=== PATIENT | male | born 1965 | race Caucasian/White ===

== ENCOUNTER → 2019-06-19 14:00 | Outpatient (BNVA) | payer MEDICAID, SELFPAY | PROVIDERS: Family Provider Family Medicine; PCP Family Medicine; Visit Provider Anesthesiology | DX: G89.29 Other chronic pain (principal); M47.817 Spondylosis without myelopathy or radiculopathy, lumbosacral region; M79.651 Pain in right thigh; M79.652 Pain in left thigh; F17.210 Nicotine dependence, cigarettes, uncomplicated; Z79.891 Long term (current) use of opiate analgesic | CPT/HCPCS: 99214 ==

== ENCOUNTER → 2019-06-26 09:33 | Outpatient (BNVA) | payer MEDICAID, SELFPAY | PROVIDERS: Family Provider Family Medicine; PCP Family Medicine; Visit Provider Nurse Practitioner Family | DX: E11.9 Type 2 diabetes mellitus without complications (principal) | CPT/HCPCS: 36416; 82044; 83036 ==

== ENCOUNTER → 2019-06-30 13:11 | Outpatient (BNVA) | payer MEDICAID, SELFPAY | PROVIDERS: Family Provider Family Medicine; PCP Family Medicine; Visit Provider Urology | DX: N39.0 Urinary tract infection, site not specified (principal); R33.9 Retention of urine, unspecified | CPT/HCPCS: 81001; 87086 ==

== ENCOUNTER 2019-07-14 10:48 | Outpatient (CLI) | payer MEDICAID, SELFPAY ==
--- NOTE | 2019-07-14 11:00 | US_ITS ---
WS: [id number] Bilateral renal ultrasound, 07/14/2019 Clinical Data: Urinary retention Comparison: Renal ultrasound, 09/21/2015. Findings: The right kidney measures 12.2 cm x 5.2 cm x 5.4 cm and the left kidney is 11.1 cm x 4.8 cm x 5.3 cm. There are no cysts, masses or hydronephrosis. The renal cortical margin is normal. No renal calculi are seen. The abdominal aorta and inferior vena cava show no vascular abnormalities. The bladder was scanned and showed a bladder deformity unchanged from before. This is been suggested to be the prostate but it could represent a large bladder polyp. US/US renal BI* [id number] Impression: 1. Negative bilateral renal ultrasound unchanged. 2. Mass in the bladder which has been described as an enlarged prostate but cou ld represent a bladder polyp. 3. The bladder mass is probably not a malignancy because it has not changed in size in almost 4 years.
== END 2019-07-14 10:49 | disposition home or self-care (01) ==
LOC: US 10:49
PROVIDERS: Family Provider Family Medicine; PCP Family Medicine; Visit Provider Urology
DX: R33.9 Retention of urine, unspecified (principal)
CPT/HCPCS: 76770

== ENCOUNTER → 2019-08-04 08:39 | Outpatient (BNVA) | payer MEDICAID, SELFPAY | PROVIDERS: Family Provider Family Medicine; PCP Family Medicine; Visit Provider Nurse Practitioner | DX: F33.1 Major depressive disorder, recurrent, moderate (principal) | CPT/HCPCS: 99213 ==

== ENCOUNTER → 2019-08-13 11:16 | Outpatient (BNVA) | payer MEDICAID, SELFPAY | PROVIDERS: Family Provider Family Medicine; PCP Family Medicine; Visit Provider Nurse Practitioner | DX: G89.29 Other chronic pain (principal); M54.5 Low back pain; M79.651 Pain in right thigh; M79.652 Pain in left thigh; F17.210 Nicotine dependence, cigarettes, uncomplicated; Z79.891 Long term (current) use of opiate analgesic | CPT/HCPCS: 99214 ==

== ENCOUNTER → 2019-10-08 10:29 | Outpatient (BNVA) | payer MEDICAID, SELFPAY | PROVIDERS: Family Provider Family Medicine; PCP Family Medicine; Visit Provider Nurse Practitioner | DX: G89.29 Other chronic pain (principal); M54.5 Low back pain; F17.210 Nicotine dependence, cigarettes, uncomplicated; Z79.891 Long term (current) use of opiate analgesic; Z71.6 Tobacco abuse counseling | CPT/HCPCS: 99214 ==

== ENCOUNTER → 2019-10-15 14:20 | Outpatient (BNVA) | payer MEDICAID, SELFPAY | PROVIDERS: Family Provider Family Medicine; PCP Family Medicine; Visit Provider Nurse Practitioner Family | DX: E11.9 Type 2 diabetes mellitus without complications (principal) | CPT/HCPCS: 83036 ==

== ENCOUNTER → 2019-11-04 07:53 | Outpatient (BNVA) | payer MEDICAID, SELFPAY | PROVIDERS: Family Provider Family Medicine; PCP Family Medicine; Visit Provider Nurse Practitioner | DX: F33.1 Major depressive disorder, recurrent, moderate (principal) | CPT/HCPCS: 99213 ==

== ENCOUNTER → 2019-12-18 10:42 | Outpatient (BNVA) | payer MEDICAID, SELFPAY | PROVIDERS: Family Provider Family Medicine; PCP Family Medicine; Visit Provider Anesthesiology | DX: G89.29 Other chronic pain (principal); M54.41 Lumbago with sciatica, right side; M54.42 Lumbago with sciatica, left side; M47.817 Spondylosis without myelopathy or radiculopathy, lumbosacral region; F17.210 Nicotine dependence, cigarettes, uncomplicated; Z79.891 Long term (current) use of opiate analgesic; Z71.6 Tobacco abuse counseling | CPT/HCPCS: 99214 ==

== ENCOUNTER → 2020-01-15 10:20 | Outpatient (BNVA) | payer MEDICAID, SELFPAY | PROVIDERS: Family Provider Family Medicine; PCP Family Medicine; Visit Provider Nurse Practitioner Family | DX: E11.9 Type 2 diabetes mellitus without complications (principal); I10 Essential (primary) hypertension | CPT/HCPCS: 82043; 83036 ==

== ENCOUNTER → 2020-02-09 11:37 | Outpatient (BNVA) | payer MEDICAID, SELFPAY | PROVIDERS: Family Provider Family Medicine; PCP Family Medicine; Visit Provider Anesthesiology | DX: G89.29 Other chronic pain (principal); M54.42 Lumbago with sciatica, left side; M54.41 Lumbago with sciatica, right side; M47.817 Spondylosis without myelopathy or radiculopathy, lumbosacral region; F17.210 Nicotine dependence, cigarettes, uncomplicated; Z79.891 Long term (current) use of opiate analgesic | CPT/HCPCS: 99213; 99214 ==

== ENCOUNTER → 2020-02-19 08:03 | Outpatient (BNVA) | payer MEDICAID, SELFPAY | PROVIDERS: Family Provider Family Medicine; PCP Family Medicine; Visit Provider Nurse Practitioner | DX: F33.1 Major depressive disorder, recurrent, moderate (principal) | CPT/HCPCS: 99214 ==

== ENCOUNTER 2020-03-03 08:43 | Outpatient (CLI) | payer MEDICAID, SELFPAY ==
--- NOTE | 2020-03-03 08:47 | ECG_ITS ---
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 Interpretive Statements NAME OF STUDY: LEXISCAN SESTAMIBI STRESS TEST INDICATION: Chest Pain, PROCEDURE: At the baseline, the EKG revealed normal sinus rhythm with a poor R wave progression. The baseline blood pressure was 162/102 mm Hg with a heart rate of 83 beats/min. Lexiscan was infused over a period of 20 seconds. A total of 0.4 milligrams of Lexiscan was infused. The stress phase was continued for a total of 5 minutes. Heart rate at the end of the stress phase was 103 with a blood pressure 168/98. The EKG at the peak infusion revealed no significant changes. Sestamibi was injected 20 seconds after the Lexiscan infusion. Blood pressure at the end of the recovery phase was 171/96 with a heart rate of 95 per minute. CONCLUSION: 1. No significant EKG changes with the LexiScan infusion 2. No LexiScan induced chest pain or cardiac arrhythmia 3. Normal blood pressure and heart rate response 4. Sestamibi/sestamibi perfusion scan pending; see separate report. Electronically Signed On 03-04-2020 16:09:15 CDT by Valeria Bray M.D. [id number]
--- NOTE | 2020-03-03 08:47 | NMCV_ITS ---
NM antonio perf SPECT r/s* [id number] Scott New Age: 54 Gender: M : 1965 Exam Date: 03/03/2020 09:42 Ordering Phys: Valeria Bray MD ([email or web address]) Technologist: ADIN Henry Exam Location: [facility] Indications: Chest pain STRESS TEST Please see separate stress test report in [facility] for full findings IMAGE PROTOCOL Rest/Stress 1 Lexiscan Day Radiopharmaceutical Dose (mCi) Administration Site Administered by Rest: Tc-99m 10.6 IV ADIN Reyes Sestamibi Stress:Tc-99m 32.7 IV ADIN Henry Sestamicarmelo Rest: 03-Mar-2020 60 Discovery 630 Stress: 03-Mar-2020 45 Discovery 630 0.4mg Lexiscan. Images obtained in supine and prone position. SPECT RESULTS Technical Quality: Good Raw Data Analysis: Soft tissue attenuation Image Corrections: No attenuation or motion correction applied Summed Stress Score: 0 Summed Rest Score: 0 Summed Difference Score: 0 PERFUSION FINDINGS Patchy areas of decreased tracer uptake in all of the anterior wall and inferior wall regions. No significant reversibility was noted in these regions. FUNCTIONAL RESULTS (calculated via Gated SPECT) Stress Image LV EF (%): 59 Stress EDV (mL):118 TID: 0.86 Stress ESV (mL):48 FUNCTIONAL FINDINGS: Segmental wall motion analysis revealing no gross wall motion abnormalities IMPRESSIONS 1. Unremarkable myocardial perfusion imaging. 2. Normal LV ejection fraction 59%. 3. LV wall motion analysis revealing no gross wall motion abnormalities. 4. Slightly elevated LV cavity, with end-systolic volume of 48 mL No significant coronary ischemia, based on the above finding Dr Valeria Bray MD FACC (Electronically Signed) Final Date: 03 March 2020 14:38 S
[2020-03-03 08:55] VITALS: BMI 41.8
[2020-03-03 11:28] VITALS: BP 171/96; PULSE 93
== END 2020-03-03 08:44 | disposition home or self-care (01) ==
LOC: CDL 08:43
PROVIDERS: PCP Family Medicine; Visit Provider Internal Medicine Cardiovascular Disease
DX: R06.02 Shortness of breath (principal); R07.89 Other chest pain
CPT/HCPCS: 78452; 93017; A9500

== ENCOUNTER → 2020-04-05 15:05 | Outpatient (BNVA) | payer MEDICAID, SELFPAY | PROVIDERS: PCP Family Medicine; Visit Provider Urology | DX: R33.9 Retention of urine, unspecified (principal); N31.9 Neuromuscular dysfunction of bladder, unspecified; N39.0 Urinary tract infection, site not specified | CPT/HCPCS: 81003 ==

== ENCOUNTER → 2020-04-12 10:58 | Outpatient (BNVA) | payer MEDICAID, SELFPAY | PROVIDERS: Family Provider Family Medicine; PCP Nurse Practitioner Family; Visit Provider Anesthesiology | DX: G89.29 Other chronic pain (principal); M54.42 Lumbago with sciatica, left side; M54.41 Lumbago with sciatica, right side; M47.817 Spondylosis without myelopathy or radiculopathy, lumbosacral region; F17.210 Nicotine dependence, cigarettes, uncomplicated; Z79.891 Long term (current) use of opiate analgesic | CPT/HCPCS: 99213; 99214 ==

== ENCOUNTER → 2020-04-19 09:47 | Outpatient (BNVA) | payer MEDICAID, SELFPAY | PROVIDERS: Family Provider Family Medicine; PCP Nurse Practitioner Family; Visit Provider Nurse Practitioner Family | DX: I10 Essential (primary) hypertension (principal); E11.9 Type 2 diabetes mellitus without complications; A63.0 Anogenital (venereal) warts | CPT/HCPCS: 80061; 83036; 84439; 84443 ==

== ENCOUNTER → 2020-06-14 10:00 | Outpatient (BNVA) | payer MEDICAID, SELFPAY | PROVIDERS: Family Provider Family Medicine; PCP Family Medicine; Visit Provider Anesthesiology | DX: G89.29 Other chronic pain (principal); M47.817 Spondylosis without myelopathy or radiculopathy, lumbosacral region; F17.210 Nicotine dependence, cigarettes, uncomplicated; Z79.891 Long term (current) use of opiate analgesic | CPT/HCPCS: 99213 ==

== ENCOUNTER → 2020-07-01 12:13 | Outpatient (BNVA) | payer MEDICAID, SELFPAY | PROVIDERS: Family Provider Family Medicine; PCP Family Medicine; Visit Provider Family Medicine | DX: R04.2 Hemoptysis (principal); F17.200 Nicotine dependence, unspecified, uncomplicated | CPT/HCPCS: 71046 ==

== ENCOUNTER → 2020-07-05 09:43 | Outpatient (BNVA) | payer MEDICAID, SELFPAY | PROVIDERS: Family Provider Family Medicine; PCP Family Medicine; Visit Provider Nurse Practitioner | DX: F33.1 Major depressive disorder, recurrent, moderate (principal); F41.1 Generalized anxiety disorder | CPT/HCPCS: 99214 ==

== ENCOUNTER → 2020-08-10 13:28 | Outpatient (BNVA) | payer MEDICAID, SELFPAY | PROVIDERS: Family Provider Family Medicine; PCP Family Medicine; Visit Provider Anesthesiology | DX: G89.29 Other chronic pain (principal); M54.5 Low back pain; M47.817 Spondylosis without myelopathy or radiculopathy, lumbosacral region; F17.210 Nicotine dependence, cigarettes, uncomplicated; Z79.891 Long term (current) use of opiate analgesic | CPT/HCPCS: 99213 ==

== ENCOUNTER → 2020-08-11 09:52 | Outpatient (BNVA) | payer MEDICAID, SELFPAY | PROVIDERS: Family Provider Family Medicine; PCP Family Medicine; Visit Provider Nurse Practitioner Family | DX: R30.0 Dysuria (principal); E11.65 Type 2 diabetes mellitus with hyperglycemia; R39.9 Unspecified symptoms and signs involving the genitourinary system; H65.91 Unspecified nonsuppurative otitis media, right ear; Z68.41 Body mass index [BMI] 40.0-44.9, adult | CPT/HCPCS: 36416; 81000; 82962 ==

== ENCOUNTER 2020-08-18 02:07 | Emergency (ER) | payer MEDICAID, SELFPAY ==
[2020-08-18 02:15] VITALS: BP 129/88; PULSE 104; RESP 20; TEMP 36.4; O2SAT 95; BMI 43.9
--- NOTE | 2020-08-18 02:18 | CTR_ITS ---
PROCEDURE INFORMATION: Exam: CT Abdomen And Pelvis Without Contrast Exam date and time: 08/18/2020 2:23 AM Age: 55 years old Clinical indication: Abdominal pain; Localized; Patient HX: Left flank/inguinal pain; Additional info: Flank pain TECHNIQUE: Imaging protocol: Computed tomography of the abdomen and pelvis without contrast. Radiation optimization: All CT scans at this facility use at least one of these dose optimization techniques: automated exposure control; mA and/or kV adjustment per patient size (includes targeted exams where dose is matched to clinical indication); or iterative reconstruction. COMPARISON: US renal BI* [id number] 07/14/2019 11:03 AM RADIATION DOSE METRICS: Total DLP (mGy-cm): 2167.42 FINDINGS: Liver: No mass. Gallbladder and bile ducts: No calcified stones. No ductal dilation. Pancreas: No ductal dilation. Spleen: No splenomegaly. Adrenal glands: Normal. No mass. Kidneys and ureters: No hydronephrosis. Stomach and bowel: No obstruction. No mucosal thickening. Appendix: No evidence of appendicitis. Intraperitoneal space: No free air. No significant fluid collection. Vasculature: No abdominal aortic aneurysm. Lymph nodes: No enlarged lymph nodes. Urinary bladder: Mild bladder wall thickening, correlate with urinalysis. Reproductive: Enlarged prostate gland. Bones/joints: Multilevel degenerative changes. Soft tissues: Unremarkable. CT/CT kidney stone [id number] IMPRESSION: Mild bladder wall thickening, correlate with urinalysis. Findings may be due to acute cystitis or chronic outlet obstruction from enlarged prostate gland. Radiation Dose CTDIVOL = (mGy): DLP = 2167.42 (mGy-cm)
--- NOTE | 2020-08-18 02:19 | W.ED.ABDPA2 ---
HPI - Abdominal Pain General: Chief Complaint: Abdominal Pain Stated Complaint: lower ab pain Time Seen by Provider: 08/18/20 02:14 Source: patient, family and RN notes reviewed Limitations: no limitations History of Present Illness: HPI narrative: This patient presents to the emergency department complaining of lower right abdominal pain and right flank pain radiating to the lower abdominal pain. States has been going on for about 5 days. Patient was seen at a local clinic and spoke to urology and they stated that the patient had kidney stone. Patient thought he had passed it but has not improved over the past day. Patient states significant right lower quadrant abdominal pain. Patient states no longer having pain in his back. Patient has a self cath 4 times a day due to chronic urinary retention issues and prostate problems. Patient states really has not had any problem with this for some time. Patient denies fever denies nausea vomiting. MD elicited complaint: abdominal pain and flank pain Pertinent past history: none Onset (ago): day(s) (5) Pain Consistency: intermittent Severity: moderate Associated Symptoms: Denies chills, dysuria, fever(s), nausea and vomiting Review of Systems General: Reports: 10 or more systems reviewed and unremarkable except in HPI and below Const: Denies: fever(s) or chills Eyes: Denies: change in vision or blurry vision ENMT: Denies: throat pain, hoarseness or mouth pain Card: Denies: chest pain, palpitations, irregular heart rhythm, edema, swelling of feet/ankles or lightheadedness Resp: Denies: dyspnea, productive cough, non-productive cough, wheezing or pain on inspiration GI: Denies: nausea or vomiting : Reports: flank pain; Denies: dysuria Musc: Denies: neck pain, back pain, extremity pain, extremity swelling, joint pain, joint swelling, joint redness, joint warmth or limited range of motion Skin/Breast: Denies: rash, pruritus, erythema or skin tenderness Neuro: Denies: headache(s), numbness in extremities or weakness in extremities Psych: Denies: anxiety or depression PFSH ED PFSH: Medical History Atherosclerotic cardiovascular disease Atypical chest pain Chronic low back pain COPD (chronic obstructive pulmonary disease) Depression Encounter for long-term opiate analgesic use Facet arthritis of lumbosacral region Generalized anxiety disorder History of AR (myocardial infarction) Hypertension Major depressive disorder, recurrent, moderate Mixed hyperlipidemia Neurogenic bladder Opioid contract exists Recurrent UTI Smoker Type 2 diabetes mellitus Urinary retention Surgical History H/O angioplasty Family History Father , at age 50, throat cancer Cancer Social History Smoking and tobacco status: current every day smoker cigarettes Packs smoked per day: 1 Alcohol intake: current Alcohol intake frequency: few times a week Alcohol type: hard liquor Adopted: No Caregiver/support person: No Lives independently: No Marital status: Current occupational status: disabled History of recent travel: No Physical Exam Const: COMMON NORMALS: no acute distress, average body habitus, patient oriented x3, no limitations, healthy appearing, alert and well nourished HENMT: COMMON NORMALS: normocephalic, atraumatic, external ears normal, EAC's normal, TM's normal bilaterally, Normal external nose present and Normal nasal mucous membranes and turbinates present HEAD & SCALP: normocephalic and atraumatic NOSE: Normal external nose present and Normal nasal mucous membranes and turbinates present EXTERNAL EAR: Yes external ears normal EXTERNAL AUDITORY CANAL: EAC's normal TYMPANIC MEMBRANE: TM's normal bilaterally Neck/C-Spine: COMMON NORMALS: full ROM, no lymphadenopathy, supple, no meningeal signs, no JVD, Thyroid normal and No carotid bruits THYROID: Thyroid normal Chest: COMMONS NORMALS: normal inspection of the chest, normal palpation of entire chest wall, normal inspection of the breasts and normal palpation of the breasts Breast/axilla inspection: Yes normal inspection of the breasts BREAST/AXILLA PALPATION: Yes normal palpation of the breasts Resp: COMMON NORMALS: normal respiratory effort, No retractions, No use of accessory muscles, clear to auscultation bilaterally and percussion normal AUSCULTATION: clear to auscultation bilaterally PERCUSSION: percussion normal Cardio: COMMON NORMALS: no JVD, regular rate, regular rhythm, S1 normal heart sound present, S2 normal heart sound present, No gallops present (Cardio), No clicks present (Cardio), No murmurs present (Cardio), No rub (Cardio) and Peripheral pulses 2+ throughout RATE: regular rate RHYTHM: regular rhythm HEART SOUNDS: S1 normal heart sound present and S2 normal heart sound present PERIPHERAL PULSES: Peripheral pulses 2+ throughout GI: COMMON NORMALS: Normal to inspection, nondistended, normoactive bowel sounds present, Soft to palpation, non-tender, No hepatosplenomegaly present, no masses and no bruits PALPATION: Yes Soft to palpation, Yes Tenderness to palpation present (GI) Details: RLQ, Yes Guarding due to palpation present (GI) and Yes No hepatosplenomegaly present : COMMON NORMALS: Yes no CVA tenderness BLADDER/KIDNEY EXAM: Yes no CVA tenderness Back/Pelvis: COMMON NORMALS: no CVA tenderness, thoracic and lumbar spine normal to inspection, no thoracic nor lumbar tenderness, thoraco-lumbar ROM normal and straight leg raise negative bilaterally Extremity: COMMON NORMALS: normal to inspection, full ROM, capillary refill normal, no joint enlargement, no clubbing, cyanosis or edema, no calf tenderness and no pedal edema Neuro: COMMON NORMALS: patient oriented x3 SENSORIUM/ORIENTATION: Yes alert MENINGEAL SIGNS: Yes no meningeal signs Course Reevaluation(s): Reevaluation #1: Patient has been pain-free since placing Lee catheter. And receiving Toradol. Negative evaluation thus far other than appears the patient has acute cystitis. On CT scan urine is still pending patient is pain-free at this time and looking good no fever. Patient be given IV Rocephin in the emergency department patient be discharged home on doxycycline I did discuss at length with patient and family about self caths. We will place a Lee catheter with a leg bag and for the next couple of days it can be removed by his PCP or urologist. Due to the patient's infection is probably the best choice instead of constantly in and out cathing every 4-5 hours. Patient states understanding he will be discharged home per the request Time: 03:53 Vital Signs: Vital signs: Vital Signs Temperature 97.6 F 08/18/20 02:15 Pulse Rate 85 08/18/20 03:37 Respiratory Rate 17 08/18/20 03:37 Blood Pressure 148/87 08/18/20 03:37 Pulse Oximetry 94 08/18/20 03:37 MDM - Abdominal Pain Differential Diagnosis: Differential diagnosis abdominal pain: Likely abdominal pain, acute appendicitis and calculus of kidney Medical Records: Attestation: I reviewed the patient's medical records. Lab Data: Attestation: I reviewed the patient's lab results. Labs: Lab Results 08/18/20 08/18/20 Range/Units 02:35 02:35 WBC 13.8 H (4.0-10.0) 10^3/ uL RBC 4.36 (4.1-5.3) 10^6/u L Hgb 14.5 (11.7-16.6) g/dL Hct 43.3 (42.0-52.0) % MCV 99.3 H (80-94) fL MCH 33.3 (28.0-34.0) pg MCHC 33.5 (30.0-36.0) g/dL RDW 12.2 (12.1-15.1) % Plt Count 220 (130-400) 10^3/c mm MPV 9.8 (7.4-10.4) fL Neut % (Auto) 77.4 % Lymph % (Auto) 15.8 % Borden % (Auto) 5.3 % Eos % (Auto) 0.6 % Baso % (Auto) 0.4 % Neut # (Auto) 10.68 H (1.8-7.7) 10^3/u L Lymph # (Auto) 2.2 (0.8-4.8) 10^3/u L Borden # (Auto) 0.7 (0.2-0.9) 10^3/u L Eos # (Auto) 0.1 (0.0-0.8) 10^3/u L Baso # (Auto) 0.1 (0.0-0.1) 10^3/u L Nucleated RBC % (a uto) 0 % Nucleated RBCs # 0.0 /100WBC Sodium 140 (136-145) mmol/L Potassium 3.8 (3.5-5.1) mmol/L Chloride 101 (98-107) mmol/L Carbon Dioxide 31 H (22-29) mmol/L Anion Gap 11.8 (5-19) BUN 12 (6-20) mg/dL Creatinine 0.6 L (0.7-1.2) mg/dL GFR Calculation 139.9 H (90-130) mL/min Glucose 262 H (65-115) mg/dL Calculated Osmolal ity 299 H (285-295) mOsm/k g Calcium 9.1 (8.5-10.5) mg/dL Total Bilirubin 0.2 (0.15-1.2) mg/dL AST 11 (0-40) U/L ALT 22 (0-41) U/L Alkaline Phosphata se 79 (40-130) IU/L Total Protein 6.8 (6.6-8.7) g/dL Albumin 3.9 (3.5-5.2) g/dL Globulin 2.9 (1.3-4.6) g/dL Lipase 23 (13-60) U/L Discharge Plan Discharge Patient Disposition: Home Clinical Impression: Acute cystitis, Chronic low back pain, Urinary retention, Acute pelvic pain Condition: Stable Prescriptions: New doxycycline hyclate 100 mg capsule 100 mg PO BID 7 Days Qty: 14 RF: 0 No Action albuterol sulfate [ProAir HFA] 90 mcg/actuation HFA aerosol inhaler 2 puff INHALATION Q4H PRN (Reason: shortness of breath or wheezing) Qty: 8.5 RF: 6 Stiolto Respimat 2.5-2.5 mcg/actuation mist 2 puff INHALATION Q24H Qty: 4 RF: 5 glipizide 10 mg tablet 10 mg PO QDAY Qty: 30 RF: 5 duloxetine [Cymbalta] 60 mg capsule,delayed release(DR/EC) 60 mg PO BID RF: 0 nitroglycerin 0.4 mg tablet, sublingual 0.4 mg SUBLINGUAL Q5M PRN (Reason: chest pain) 30 Days Qty: 30 RF: 3 nystatin 100,000 unit/gram ointment 1 applic TOPICAL TID RF: 0 ascorbic acid (vitamin C) 1,000 mg tablet 1 gm PO BID RF: 0 hydrocodone-acetaminophen 10-325 mg tablet 1 tab PO .6 times daily PRN (Reason: pain) 30 Days Qty: 180 RF: 0 hydrocodone-acetaminophen 10-325 mg tablet 1 tab PO .6 times a day PRN (Reason: pain) 30 Days Qty: 180 RF: 0 tiagabine [Gabitril] 4 mg tablet 4 mg PO BID Qty: 60 RF: 1 cetirizine [All Day Allergy (cetirizine)] 10 mg tablet 10 mg PO DAILY Qty: 30 RF: 0 fluticasone propionate 50 mcg/actuation spray,suspension 1 spray intranasal DAILY Qty: 16 RF: 11 alfuzosin 10 mg tablet extended release 24 hr 10 mg PO DAILY Qty: 30 RF: 12 potassium chloride 10 mEq tablet extended release 10 meq PO DAILY Qty: 30 RF: 11 alprazolam [Xanax] 1 mg tablet 1 mg PO .at bed Qty: 30 RF: 0 atenolol 50 mg tablet 50 mg PO DAILY Qty: 30 RF: 0 dexlansoprazole [Dexilant] 60 mg capsule,biphase delayed releas See Rx Instructions .ROUTE .COMPLEX Qty: 30 RF: 5 rosuvastatin 10 mg tablet See Rx Instructions .ROUTE .COMPLEX Qty: 30 RF: 3 metformin 1,000 mg tablet See Rx Instructions .ROUTE .COMPLEX Qty: 60 RF: 4 methenamine hippurate 1 gram tablet See Rx Instructions .ROUTE .COMPLEX Qty: 60 RF: 12 finasteride 5 mg tablet See Rx Instructions .ROUTE .COMPLEX Qty: 30 RF: 12 isosorbide mononitrate 60 mg tablet extended release 24 hr See Rx Instructions .ROUTE .COMPLEX Qty: 90 RF: 2 valsartan-hydrochlorothiazide 80-12.5 mg tablet See Rx Instructions .ROUTE .COMPLEX Qty: 30 RF: 5 dicyclomine 10 mg capsule See Rx Instructions .ROUTE .COMPLEX Qty: 60 RF: 5 Discharge Orders: Discharge ED (Routine); Ordered 08/18/20 Ordered By: Tarik Bernal Referrals: Ralf Singh DO [Primary Care Provider] - Discharge Diet: Advance as tolerated Discharge Activity: Resume usual activity Patient Instructions: Opioid Safety Activity Restrictions/Additional Instructions: Encourage p.o. fluids. Take medications as prescribed. Follow-up with your primary care physician or PCP or urologist in 2 to 3 days for further evaluation as needed. Maintain Lee catheter as instructed Coding Level of Care Code ED Human Resources Office Assistant for Jackg Fwd Exam Comprehensive
[2020-08-18] MEDS: ketorolac 30 mg/mL INJ 15 MG IVP (02:29)
[2020-08-18] MEDS: ondansetron 2 mg/ML SDV 2 mL 4 MG IVP (02:29)
[2020-08-18] MEDS: sodium chloride 0.9% 500 ML IV (02:30)
[2020-08-18 02:38] LABS: Basophils # 0.1 10^3/uL (0.0-0.1); Basophils % 0.4 %; Eosinophils # 0.1 10^3/uL (0.0-0.8); Eosinophils % 0.6 %; Hematocrit 43.3 % (42.0-52.0); Hemoglobin 14.5 g/dL (11.7-16.6); Lymphocytes # 2.2 10^3/uL (0.8-4.8); Lymphocytes % 15.8 %; Mean Corpuscular HGB Conc 33.5 g/dL (30.0-36.0); Mean Corpuscular Hemoglobin 33.3 pg (28.0-34.0); Mean Corpuscular Volume 99.3 fL (80-94); Mean Platelet Volume 9.8 fL (7.4-10.4); Monocytes # 0.7 10^3/uL (0.2-0.9); Monocytes % 5.3 %; Neutrophils # 10.68 10^3/uL (1.8-7.7); Neutrophils % 77.4 %; Nucleated Red Blood Cells % 0 %; Platelet Count 220 10^3/cmm (130-400); Red Blood Count 4.36 10^6/uL (4.1-5.3); Red Cell Distribution Width 12.2 % (12.1-15.1); White Blood Count 13.8 10^3/uL (4.0-10.0)
[2020-08-18 02:45] VITALS: BP 129/88; PULSE 98; RESP 18; O2SAT 95
[2020-08-18 03:01] LABS: Alanine Aminotransferase 22 U/L (0-41); Albumin Level 3.9 g/dL (3.5-5.2); Alkaline Phosphatase 79 IU/L (40-130); Anion Gap 11.8 (5-19); Aspartate Amino Transferase 11 U/L (0-40); Blood Urea Nitrogen 12 mg/dL (6-20); Calcium 9.1 mg/dL (8.5-10.5); Carbon Dioxide 31 mmol/L (22-29); Chloride 101 mmol/L (98-107); Globulin 2.9 g/dL (1.3-4.6); Glomerular Filtration Rate 139.9 mL/min (90-130); Glucose 262 mg/dL (65-115); Lipase 23 U/L (13-60); Osmolality Calculated 299 mOsm/kg (285-295); Potassium 3.8 mmol/L (3.5-5.1); Sodium 140 mmol/L (136-145); Total Bilirubin 0.2 mg/dL (0.15-1.2); Total Protein 6.8 g/dL (6.6-8.7)
[2020-08-18 03:06] VITALS: BP 144/86; PULSE 81; RESP 17; O2SAT 94
[2020-08-18 03:37] VITALS: BP 148/87; PULSE 85; RESP 17; O2SAT 94
[2020-08-18] MEDS: cefTRIAXone 1,000 MG in sodium chloride 0.9% (plus) 50 ML 100 MG IV (03:54)
[2020-08-18 04:07] LABS: Urine Appearance Cloudy (CLEAR); Urine Color Yellow (Yellow)
[2020-08-18 04:09] LABS: Bilirubin Urine Neg (Negative); Blood Urine 3+ (Negative); Glucose Urine UA 4+ (Normal); Ketones Urine 1+ (Negative); Nitrate Urine Positive (Negative); Protein Urine Trace (Negative); Urobilinogen Urine 1 mg/dL (Negative); pH Urine 5 (5-7)
[2020-08-18 04:10] LABS: Add Urine Microscopic? YES; Bacteria Urine 3+ /hpf; Leukocyte Esterase Urine 2+ (Negative); RBC Urine 15-25 /hpf (0-2); Squamous Epithelial Cell Urine RARE /hpf (0-5); WBC Urine 25-40 /hpf (0-5)
[2020-08-18 04:11] LABS: Add Urine Culture? Yes
== END 2020-08-18 04:21 | disposition home or self-care (01) ==
PROVIDERS: Emergency Provider Emergency Medicine; PCP Family Medicine
DX: N30.00 Acute cystitis without hematuria (principal); R10.2 Pelvic and perineal pain; R33.9 Retention of urine, unspecified; G89.29 Other chronic pain; M54.5 Low back pain; Z79.84 Long term (current) use of oral hypoglycemic drugs; J44.9 Chronic obstructive pulmonary disease, unspecified; I25.2 Old myocardial infarction; I10 Essential (primary) hypertension; E78.2 Mixed hyperlipidemia; E11.9 Type 2 diabetes mellitus without complications; F17.210 Nicotine dependence, cigarettes, uncomplicated; Z87.440 Personal history of urinary (tract) infections
CPT/HCPCS: 51702; 74176; 80053; 81001; 83690; 85025; 87077; 87086; 87186; 96365; 96375; 99283; J0696; J1885; J2405; J7040

== ENCOUNTER 2020-08-19 00:51 | Emergency (ER) | payer MEDICAID, SELFPAY ==
[2020-08-19 00:53] VITALS: BP 149/90; PULSE 109; RESP 24; TEMP 36.7; O2SAT 90; BMI 43.9
--- NOTE | 2020-08-19 01:06 | US_ITS ---
WS: [id number] SCROTAL ULTRASOUND REASON FOR EXAM: right testicle pain COMPARISON: None available. TECHNIQUE: Grayscale and duplex color Doppler ultrasound examination of the scrotum. FINDINGS: RIGHT: Right testes measures 4.0 cm x 3.2 cm x 3.0 cm. Moderate hydrocele. Enlargement of the epididymis. In creased color Doppler flow in the epididymis and right testicle. Normal echogenicity of the right sloane ticle with no focal lesion. LEFT: Left testes measures 4.3 cm x 3.5 cm x 2.8 cm. No hydrocele. Normal echotexture without focal lesion. Normal epididymis. Normal blood flow. US/US scrotum [id number] IMPRESSION: Findings in the right hemiscrotum compatible with epididymoorchitis.
--- NOTE | 2020-08-19 01:06 | W.ED.MALEGU ---
HPI - Male Genitourinary General: Chief complaint: Urogenital-Male Stated complaint: swollen testes Time Seen by Provider: 08/19/20 00:58 Source: patient Mode of arrival: ambulatory Limitations: no limitations History of Present Illness: HPI Narrative: 55-year-old male states that testicle pain over the last day. States he was seen yesterday and diagnosed with a urinary tract infection and had a Lee in place. He states that his testicles got much more swollen and painful. He states pain is currently 9 out of 10 is much worse with any palpation. Complaint: testicle pain Onset (ago): day(s) Duration: constant Location: right testicle Associated symptoms: Deny nausea or vomiting Review of Systems Const: Denies: fever(s), chills, body aches or change in appetite Eyes: Denies: blurry vision or eye discomfort ENMT: Denies: throat pain or dental pain Card: Denies: chest pain Resp: Denies: dyspnea GI: Denies: abdominal pain, nausea, vomiting or diarrhea : Reports: testicular pain Musc: Denies: neck pain or back pain Skin/Breast: Denies: rash Neuro: Denies: headache(s) Psych: Denies: depression Mitul/Lymph: Denies: easy bruising All/Imm: Denies: urticaria PFSH ED PFSH: Medical History Atherosclerotic cardiovascular disease Atypical chest pain Chronic low back pain COPD (chronic obstructive pulmonary disease) Depression Encounter for long-term opiate analgesic use Facet arthritis of lumbosacral region Generalized anxiety disorder History of [place] (myocardial infarction) Hypertension Major depressive disorder, recurrent, moderate Mixed hyperlipidemia Neurogenic bladder Opioid contract exists Recurrent UTI Smoker Type 2 diabetes mellitus Urinary retention Surgical History H/O angioplasty Family History Father , at age 50, throat cancer Cancer Social History Smoking and tobacco status: current every day smoker cigarettes Packs smoked per day: 1 Alcohol intake: current Alcohol intake frequency: few times a week Alcohol type: hard liquor Adopted: No Caregiver/support person: No Lives independently: No Marital status: Current occupational status: disabled History of recent travel: No Physical Exam Const: COMMON NORMALS: no acute distress, patient oriented x3 and healthy appearing HENMT: COMMON NORMALS: normocephalic and atraumatic HEAD & SCALP: normocephalic and atraumatic Eye: COMMON NORMALS: Equal, round and reactive pupils present and EOMs intact bilaterally PUPIL: Yes Equal, round and reactive pupils present Neck/C-Spine: COMMON NORMALS: full ROM and supple Chest: COMMONS NORMALS: normal inspection of the chest and normal palpation of entire chest wall Resp: COMMON NORMALS: normal respiratory effort, No retractions, No use of accessory muscles and clear to auscultation bilaterally AUSCULTATION: clear to auscultation bilaterally Cardio: COMMON NORMALS: regular rate, regular rhythm and No murmurs present (Cardio) RATE: regular rate RHYTHM: regular rhythm GI: COMMON NORMALS: Normal to inspection, nondistended, normoactive bowel sounds present, Soft to palpation, non-tender and no masses PALPATION: Yes Soft to palpation : OTHER: Tenderness and swelling to right testicle. Lee in place Extremity: COMMON NORMALS: normal to inspection and full ROM Neuro: COMMON NORMALS: patient oriented x3, moves all extremities and no focal motor deficits Psych: COMMON NORMALS: mental status grossly normal, Normal thought process present and cooperative THOUGHT PROCESS: Normal thought process present Skin: COMMON NORMALS: no rashes or lesions noted and no wounds GENERAL SKIN EXAM: no rashes or lesions noted Course Vital Signs: Vital signs: Vital Signs Temperature 98.0 F 08/19/20 00:53 Pulse Rate 109 H 08/19/20 00:53 Respiratory Rate 24 H 08/19/20 00:53 Blood Pressure 149/90 08/19/20 00:53 Pulse Oximetry 90 08/19/20 00:53 MDM - Male MDM Narrative: Medical decision making narrative: Patient presents with epididymitis of his right testicle. He is to continue his antibiotics and pain meds. He has no signs of torsion. Patient is stable for discharge and is to follow-up his PCP. Discharge Plan Discharge Patient Disposition: Home Clinical Impression: Epididymitis Condition: Stable Prescriptions: No Action albuterol sulfate [ProAir HFA] 90 mcg/actuation HFA aerosol inhaler 2 puff INHALATION Q4H PRN (Reason: shortness of breath or wheezing) Qty: 8.5 RF: 6 Stiolto Respimat 2.5-2.5 mcg/actuation mist 2 puff INHALATION Q24H Qty: 4 RF: 5 glipizide 10 mg tablet 10 mg PO QDAY Qty: 30 RF: 5 duloxetine [Cymbalta] 60 mg capsule,delayed release(DR/EC) 60 mg PO BID RF: 0 nitroglycerin 0.4 mg tablet, sublingual 0.4 mg SUBLINGUAL Q5M PRN (Reason: chest pain) 30 Days Qty: 30 RF: 3 nystatin 100,000 unit/gram ointment 1 applic TOPICAL TID RF: 0 ascorbic acid (vitamin C) 1,000 mg tablet 1 gm PO BID RF: 0 hydrocodone-acetaminophen 10-325 mg tablet 1 tab PO .6 times daily PRN (Reason: pain) 30 Days Qty: 180 RF: 0 hydrocodone-acetaminophen 10-325 mg tablet 1 tab PO .6 times a day PRN (Reason: pain) 30 Days Qty: 180 RF: 0 tiagabine [Gabitril] 4 mg tablet 4 mg PO BID Qty: 60 RF: 1 cetirizine [All Day Allergy (cetirizine)] 10 mg tablet 10 mg PO DAILY Qty: 30 RF: 0 fluticasone propionate 50 mcg/actuation spray,suspension 1 spray intranasal DAILY Qty: 16 RF: 11 alfuzosin 10 mg tablet extended release 24 hr 10 mg PO DAILY Qty: 30 RF: 12 potassium chloride 10 mEq tablet extended release 10 meq PO DAILY Qty: 30 RF: 11 alprazolam [Xanax] 1 mg tablet 1 mg PO .at bed Qty: 30 RF: 0 atenolol 50 mg tablet 50 mg PO DAILY Qty: 30 RF: 0 dexlansoprazole [Dexilant] 60 mg capsule,biphase delayed releas See Rx Instructions .ROUTE .COMPLEX Qty: 30 RF: 5 rosuvastatin 10 mg tablet See Rx Instructions .ROUTE .COMPLEX Qty: 30 RF: 3 metformin 1,000 mg tablet See Rx Instructions .ROUTE .COMPLEX Qty: 60 RF: 4 methenamine hippurate 1 gram tablet See Rx Instructions .ROUTE .COMPLEX Qty: 60 RF: 12 finasteride 5 mg tablet See Rx Instructions .ROUTE .COMPLEX Qty: 30 RF: 12 isosorbide mononitrate 60 mg tablet extended release 24 hr See Rx Instructions .ROUTE .COMPLEX Qty: 90 RF: 2 valsartan-hydrochlorothiazide 80-12.5 mg tablet See Rx Instructions .ROUTE .COMPLEX Qty: 30 RF: 5 dicyclomine 10 mg capsule See Rx Instructions .ROUTE .COMPLEX Qty: 60 RF: 5 doxycycline hyclate 100 mg capsule 100 mg PO BID 7 Days Qty: 14 RF: 0 Discharge Orders: Discharge ED (Routine); Ordered 08/19/20 Ordered By: Josette Daniels Referrals: Ralf Singh DO [Primary Care Provider] - 1-3 days Discharge Diet: Advance as tolerated Discharge Activity: Resume usual activity Patient Instructions: Epididymitis (ED) Coding Level of Care Code 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
[2020-08-19] MEDS: HYDROcodone-acetaminophen 7.5-325 mg Tablet 1 TAB PO (01:13)
--- NOTE | 2020-08-19 02:35 | PC.NURSE ---
Lee catheter removed at this time per pt request after approved by Dr. Daniels. 10ml sterile water removed from bulb and catheter intact. Pt tolerated well.
[2020-08-19 02:41] VITALS: BP 162/96; PULSE 104; RESP 18; O2SAT 90
== END 2020-08-19 02:42 | disposition home or self-care (01) ==
PROVIDERS: Emergency Provider Emergency Medicine; PCP Family Medicine
DX: N45.1 Epididymitis (principal); J44.9 Chronic obstructive pulmonary disease, unspecified; I25.2 Old myocardial infarction; I10 Essential (primary) hypertension; E78.2 Mixed hyperlipidemia; E11.9 Type 2 diabetes mellitus without complications; F17.210 Nicotine dependence, cigarettes, uncomplicated
CPT/HCPCS: 76870; 99283

== ENCOUNTER → 2020-08-30 13:07 | Outpatient (BNVA) | payer MEDICAID, SELFPAY | PROVIDERS: PCP Family Medicine; Visit Provider Podiatrist Foot & Ankle Surgery | DX: M79.671 Pain in right foot (principal); M79.672 Pain in left foot | CPT/HCPCS: 77077 ==

== ENCOUNTER → 2020-09-23 13:35 | Outpatient (BNVA) | payer MEDICAID, SELFPAY | PROVIDERS: PCP Family Medicine; Visit Provider Nurse Practitioner | DX: F41.1 Generalized anxiety disorder (principal); F33.1 Major depressive disorder, recurrent, moderate | CPT/HCPCS: 99214 ==

== ENCOUNTER → 2020-10-12 11:20 | Outpatient (BNVA) | payer MEDICAID, SELFPAY | PROVIDERS: PCP Family Medicine; Visit Provider Nurse Practitioner | DX: G89.29 Other chronic pain (principal); M47.817 Spondylosis without myelopathy or radiculopathy, lumbosacral region; F17.210 Nicotine dependence, cigarettes, uncomplicated; Z79.891 Long term (current) use of opiate analgesic; Z71.6 Tobacco abuse counseling | CPT/HCPCS: 99213; 99214 ==

== ENCOUNTER 2020-10-26 14:12 | Outpatient (CLI) | payer MEDICAID, SELFPAY ==
--- NOTE | 2020-10-26 14:17 | CT_ITS ---
WS: [id number] LDCT LUNG CANCER SCREENING HISTORY: NICOTINE DEPENDENCE TECHNIQUE: Axial imaging performed from the apices to 1 cm below the costophrenic angles. Coronal and sagittal reformats are submitted with axial MIP series. All CT scans at [facility] use at least one of these dose optimization techniques: automated exposure control; mA and/or kV adjustment per patient size (includes targeted exams where dose is matched to clinical indication); or iterativ e reconstruction. DLP: 52.21 mGy.cm DIvol: 1.58 mGy COMPARISON: None available. Diagnostic quality: Satisfactory Lung Nodules: No pulmonary nodules or endobronchial lesions. Lungs: Mild pulmonary hyperexpansion from emphysema. Heart: Normal size. A few scattered calcifications in the LEFT anterior descending coronary artery. Other findings: Mild anterior wedging of T12. CT/CT lung screening [id number] IMPRESSION: LUNG-RADS: 1-Negative FOLLOW UP: 12 Month: Continue annual screening with LDCT OTHER FINDINGS (S MODIFIER): None.
== END 2020-10-26 14:13 | disposition home or self-care (01) ==
LOC: CT 14:15
PROVIDERS: PCP Nurse Practitioner Family; Visit Provider Internal Medicine Critical Care Medicine
DX: Z12.2 Encounter for screening for malignant neoplasm of respiratory organs (principal); F17.210 Nicotine dependence, cigarettes, uncomplicated
CPT/HCPCS: 71271

== ENCOUNTER → 2020-11-08 11:36 | Outpatient (BNVA) | payer MEDICAID, SELFPAY | PROVIDERS: PCP Nurse Practitioner Family; Visit Provider Nurse Practitioner Family | DX: E11.65 Type 2 diabetes mellitus with hyperglycemia (principal); I10 Essential (primary) hypertension | CPT/HCPCS: 83036 ==

== ENCOUNTER → 2020-12-07 10:06 | Outpatient (BNVA) | payer MEDICAID, SELFPAY | PROVIDERS: PCP Nurse Practitioner Family; Visit Provider Nurse Practitioner | DX: G89.29 Other chronic pain (principal); M47.817 Spondylosis without myelopathy or radiculopathy, lumbosacral region; F17.210 Nicotine dependence, cigarettes, uncomplicated; Z79.891 Long term (current) use of opiate analgesic; Z71.6 Tobacco abuse counseling | CPT/HCPCS: 99213; 99406 ==

== ENCOUNTER → 2020-12-19 10:50 | Outpatient (BNVA) | payer MEDICAID, SELFPAY | PROVIDERS: PCP Nurse Practitioner Family; Visit Provider Nurse Practitioner | DX: F33.1 Major depressive disorder, recurrent, moderate (principal); F41.1 Generalized anxiety disorder | CPT/HCPCS: 99214 ==

== ENCOUNTER → 2021-02-07 10:14 | Outpatient (BNVA) | payer MEDICAID, SELFPAY | PROVIDERS: PCP Nurse Practitioner Family; Visit Provider Nurse Practitioner | DX: G89.29 Other chronic pain (principal); M47.817 Spondylosis without myelopathy or radiculopathy, lumbosacral region; M79.671 Pain in right foot; M79.672 Pain in left foot; F17.210 Nicotine dependence, cigarettes, uncomplicated; Z79.891 Long term (current) use of opiate analgesic | CPT/HCPCS: 99213; 99214 ==

== ENCOUNTER → 2021-02-08 11:40 | Outpatient (BNVA) | payer MEDICAID, SELFPAY | PROVIDERS: PCP Nurse Practitioner Family; Visit Provider Internal Medicine Critical Care Medicine | DX: E11.65 Type 2 diabetes mellitus with hyperglycemia (principal); J42 Unspecified chronic bronchitis; J96.12 Chronic respiratory failure with hypercapnia; G47.33 Obstructive sleep apnea (adult) (pediatric); F17.200 Nicotine dependence, unspecified, uncomplicated | CPT/HCPCS: 83036 ==

== ENCOUNTER → 2021-03-06 11:22 | Outpatient (BNVA) | payer MEDICAID, SELFPAY | PROVIDERS: PCP Nurse Practitioner Family; Visit Provider Nurse Practitioner | DX: F33.1 Major depressive disorder, recurrent, moderate (principal); F41.1 Generalized anxiety disorder | CPT/HCPCS: 99214 ==

== ENCOUNTER 2021-04-04 13:56 | Outpatient (CLI) | payer MEDICAID, SELFPAY ==
--- NOTE | 2021-04-04 14:15 | US_ITS ---
WS: [id number] ULTRASOUND RENAL TECHNIQUE: Ultrasound examination of both kidneys. CLINICAL INFORMATION: URINARY RETENTION COMPARISON: CT August 18, 2020 Ultrasound July 14, 2019 FINDINGS: Technically difficult examination due to body habitus. RIGHT: Right kidney is normal in size and appearance. Echogenicity: Normal. Cortical thickness: 1.3 cm; Normal. Hydronephrosis: None. Perinephric fluid: None. Right kidney measures: 11.5 cm x 5.0 cm x 5.6 cm. LEFT:Tiny cyst mid left kidney measuring 1.2 x 1.0 x 0.7 cm Left kidney is normal in size and appearance. Echogenicity: Normal. Cortical thickness: 1.5 cm; Normal. Hydronephrosis: None. Perinephric fluid: None. Left kidney measures: 12.7 cm x 4.2 cm x 6.0 cm. Normal visualized aorta.Moderate diffuse bladder wall thickening likely due to bladder outlet obstruc tion. Enlarged nodular prostate measuring approximately 4.1 x 4.8 x 3.4 CM. Recommend correlation PSA. US/US renal BI* [id number] IMPRESSION: 1. No hydronephrosis in either kidney. 2. Moderate diffuse bladder wall thickening likely due to bladder outlet obstr uction. 3. Enlarged nodular prostate with indentation on the bladder measuring approxi mately 4.1 x 4.8 x 3.4 CM. Recommend correlation PSA. This is similar to the re cent CT. 4. Tiny cyst mid left kidney measuring 1.2 x 1.0 x 0.7 cm
== END 2021-04-04 13:57 | disposition home or self-care (01) ==
LOC: RAD 13:58
PROVIDERS: PCP Nurse Practitioner Family; Visit Provider Urology
DX: R33.9 Retention of urine, unspecified (principal); N40.2 Nodular prostate without lower urinary tract symptoms; N28.1 Cyst of kidney, acquired
CPT/HCPCS: 76770; 81003

== ENCOUNTER → 2021-04-07 10:17 | Outpatient (BNVA) | payer MEDICAID, SELFPAY | PROVIDERS: PCP Nurse Practitioner Family; Visit Provider Anesthesiology | DX: G89.29 Other chronic pain (principal); M47.817 Spondylosis without myelopathy or radiculopathy, lumbosacral region; F17.200 Nicotine dependence, unspecified, uncomplicated; Z79.891 Long term (current) use of opiate analgesic; Z71.6 Tobacco abuse counseling | CPT/HCPCS: 99214 ==

== ENCOUNTER → 2021-05-08 11:15 | Outpatient (BNVA) | payer MEDICAID, SELFPAY | PROVIDERS: PCP Nurse Practitioner Family; Visit Provider Nurse Practitioner | DX: F33.1 Major depressive disorder, recurrent, moderate (principal); F41.1 Generalized anxiety disorder | CPT/HCPCS: 99214 ==

== ENCOUNTER → 2021-06-09 08:36 | Outpatient (BNVA) | payer MEDICAID, SELFPAY | PROVIDERS: PCP Nurse Practitioner Family; Visit Provider Anesthesiology | DX: G89.29 Other chronic pain (principal); M47.817 Spondylosis without myelopathy or radiculopathy, lumbosacral region; G25.81 Restless legs syndrome; F17.200 Nicotine dependence, unspecified, uncomplicated; Z79.891 Long term (current) use of opiate analgesic | CPT/HCPCS: 99213; 99214 ==

== ENCOUNTER → 2021-08-01 11:09 | Outpatient (BNVA) | payer MEDICAID, SELFPAY | PROVIDERS: PCP Nurse Practitioner Family; Visit Provider Nurse Practitioner | DX: F33.1 Major depressive disorder, recurrent, moderate (principal); F41.1 Generalized anxiety disorder | CPT/HCPCS: 99214 ==

== ENCOUNTER → 2021-08-24 09:21 | Outpatient (BNVA) | payer MEDICAID, SELFPAY | PROVIDERS: PCP Nurse Practitioner Family; Visit Provider Family Medicine | DX: E11.9 Type 2 diabetes mellitus without complications (principal); J42 Unspecified chronic bronchitis; Z79.891 Long term (current) use of opiate analgesic; Z68.41 Body mass index [BMI] 40.0-44.9, adult; G89.29 Other chronic pain; M47.817 Spondylosis without myelopathy or radiculopathy, lumbosacral region; F17.200 Nicotine dependence, unspecified, uncomplicated; G25.81 Restless legs syndrome | CPT/HCPCS: 80053; 80061; 83036; 84439; 84443; 85025 ==

== ENCOUNTER → 2021-09-01 14:33 | Outpatient (BNVA) | payer MEDICAID, SELFPAY | PROVIDERS: PCP Nurse Practitioner Family; Visit Provider Nurse Practitioner Family | DX: R79.89 Other specified abnormal findings of blood chemistry (principal) | CPT/HCPCS: 86376 ==

== ENCOUNTER → 2021-10-03 13:10 | Outpatient (BNVA) | payer MEDICAID, SELFPAY | PROVIDERS: PCP Nurse Practitioner Family; Visit Provider Nurse Practitioner | DX: F33.1 Major depressive disorder, recurrent, moderate (principal); F41.1 Generalized anxiety disorder | CPT/HCPCS: 99214 ==

== ENCOUNTER 2021-11-06 16:23 | Outpatient (CLI) | payer MEDICAID, SELFPAY ==
--- NOTE | 2021-11-06 16:37 | XR_ITS ---
WS: [id number] Exam: XR lumbar spine f/e only [id number] Date/Time of Exam: 11/06/2021 4:50 PM Reason For Exam: LOW BACK PAIN No acute fracture or dislocation. There is spondylosis. Facet arthropathy at all levels. There is str aightening. No significant flexion or extension instability. XR/XR lumbar spine f/e only [id number] IMPRESSION: 1. No fracture or malalignment. No instability noted. 2. Moderate degenerative changes as detailed above.
== END 2021-11-06 16:24 | disposition home or self-care (01) ==
PROVIDERS: PCP Family Medicine; Visit Provider Nurse Practitioner
DX: M54.51 Vertebrogenic low back pain (principal)
CPT/HCPCS: 72120

== ENCOUNTER → 2021-11-20 11:29 | Outpatient (BNVA) | payer MEDICAID, SELFPAY | PROVIDERS: PCP Family Medicine; Visit Provider Nurse Practitioner Family | DX: E11.9 Type 2 diabetes mellitus without complications (principal); Z87.898 Personal history of other specified conditions; Z68.41 Body mass index [BMI] 40.0-44.9, adult | CPT/HCPCS: 83036 ==

== ENCOUNTER → 2021-12-19 08:19 | Outpatient (BNVA) | payer MEDICAID, SELFPAY | PROVIDERS: PCP Family Medicine; Visit Provider Podiatrist Foot & Ankle Surgery | DX: M21.621 Bunionette of right foot (principal); M21.622 Bunionette of left foot; E11.8 Type 2 diabetes mellitus with unspecified complications; E11.42 Type 2 diabetes mellitus with diabetic polyneuropathy; I73.9 Peripheral vascular disease, unspecified; L60.3 Nail dystrophy; M20.41 Other hammer toe(s) (acquired), right foot; M20.42 Other hammer toe(s) (acquired), left foot | CPT/HCPCS: 11056; 11721 ==

== ENCOUNTER → 2021-12-26 10:22 | Outpatient (BNVA) | payer MEDICAID, SELFPAY | PROVIDERS: PCP Family Medicine; Visit Provider Nurse Practitioner Family | DX: R31.9 Hematuria, unspecified (principal); R33.9 Retention of urine, unspecified | CPT/HCPCS: 81000; 81003; 87077; 87086; 87184 ==

== ENCOUNTER 2022-04-04 11:16 | Outpatient (CLI) | payer MEDICAID, SELFPAY ==
[2022-04-04 13:12] LABS: Prostate Specific AG Urology 1.17 ng/mL (0-4)
== END 2022-04-04 11:17 | disposition home or self-care (01) ==
PROVIDERS: PCP Nurse Practitioner Family; Visit Provider Urology
DX: Z12.5 Encounter for screening for malignant neoplasm of prostate (principal); N39.0 Urinary tract infection, site not specified; R33.9 Retention of urine, unspecified
CPT/HCPCS: 36415; 51798; 81003; 84153; 99213

== ENCOUNTER → 2022-07-02 11:36 | Outpatient (BNVA) | payer MEDICAID, SELFPAY | PROVIDERS: PCP Nurse Practitioner Family; Visit Provider Nurse Practitioner Family | DX: K21.9 Gastro-esophageal reflux disease without esophagitis (principal); I10 Essential (primary) hypertension; E11.65 Type 2 diabetes mellitus with hyperglycemia; L84 Corns and callosities; Z68.41 Body mass index [BMI] 40.0-44.9, adult | CPT/HCPCS: 80053; 80061; 83036; 83721; 84443 ==

== ENCOUNTER → 2022-07-16 12:10 | Outpatient (BNVA) | payer MEDICAID, SELFPAY | PROVIDERS: PCP Nurse Practitioner Family; Visit Provider Internal Medicine Cardiovascular Disease | DX: I10 Essential (primary) hypertension (principal); E78.2 Mixed hyperlipidemia; J42 Unspecified chronic bronchitis; E11.65 Type 2 diabetes mellitus with hyperglycemia; Z79.84 Long term (current) use of oral hypoglycemic drugs; F17.200 Nicotine dependence, unspecified, uncomplicated; Z79.891 Long term (current) use of opiate analgesic; E66.9 Obesity, unspecified; Z68.41 Body mass index [BMI] 40.0-44.9, adult; F17.210 Nicotine dependence, cigarettes, uncomplicated | CPT/HCPCS: 99213 ==

== ENCOUNTER → 2022-10-03 09:15 | Outpatient (BNVA) | payer MEDICAID, SELFPAY | PROVIDERS: PCP Nurse Practitioner Family; Visit Provider Nurse Practitioner Family | DX: E11.9 Type 2 diabetes mellitus without complications (principal); I10 Essential (primary) hypertension; Z68.41 Body mass index [BMI] 40.0-44.9, adult | CPT/HCPCS: 82043; 83036 ==

== ENCOUNTER → 2022-11-09 10:07 | Outpatient (BNVA) | payer MEDICAID, SELFPAY | PROVIDERS: PCP Nurse Practitioner Family; Visit Provider Nurse Practitioner Family | DX: M25.512 Pain in left shoulder (principal); M19.012 Primary osteoarthritis, left shoulder | CPT/HCPCS: 73030 ==

== ENCOUNTER 2022-11-29 14:51 | Outpatient (CLI) | payer MEDICAID, SELFPAY ==
--- NOTE | 2022-11-29 15:15 | MR_ITS ---
WS: [id number] MRI LEFT SHOULDER HISTORY: M25.512 - Pain in left shoulder COMPARISON: 11/09/2022 TECHNIQUE: Multiplanar sequences of the shoulder joint are submitted. Moderate AC joint arthritis. Small osteophytes from the joint encroachment upon the supraspinatus. No significant subacromial impingement. Small amount of fluid in the subacromial and subdeltoid bursa. No os acromion. Biceps tendon partially subluxed from the bicipital groove. Split tear within the ext racapsular biceps tendon. Numerous sequences are limited by motion. No atrophy of the rotator cuff muscles. No edema. Increased T2 signal in the distal supraspinatus tendon with tendinopathy. No tendon tear is identified. Degene rative changes at the glenohumeral joint. There is narrowing of the joint space with a subchondral cy st in the posterior glenoid. Cannot confirm or exclude labral tear on this examination due to the mot ion artifact. MR/MR shoulder LT wo con* [id number] IMPRESSION: 1. Quality of this examination is limited by motion artifact. 2. Moderate AC joint arthritis. 3. Suspect partially subluxed biceps tendon with split tear. 4. Mild tendinopathy distal supraspinatus tendon. No rotator cuff tendon tear identified. 5. Moderate glenohumeral joint arthritis. Joint space narrowing with loss of t he cartilage and subchondral cyst in the glenoid.
== END 2022-11-29 14:52 | disposition home or self-care (01) ==
LOC: RAD 14:51
PROVIDERS: PCP Nurse Practitioner Family; Visit Provider Nurse Practitioner Family
DX: M19.012 Primary osteoarthritis, left shoulder (principal); M77.8 Other enthesopathies, not elsewhere classified
CPT/HCPCS: 73221

== ENCOUNTER → 2023-01-01 14:30 | Outpatient (BNVA) | payer MEDICAID, SELFPAY | PROVIDERS: PCP Nurse Practitioner Family; Visit Provider Podiatrist Foot & Ankle Surgery | DX: M21.621 Bunionette of right foot; M21.622 Bunionette of left foot; E11.42 Type 2 diabetes mellitus with diabetic polyneuropathy; I73.9 Peripheral vascular disease, unspecified; L60.3 Nail dystrophy; M20.41 Other hammer toe(s) (acquired), right foot; M20.42 Other hammer toe(s) (acquired), left foot; Z79.84 Long term (current) use of oral hypoglycemic drugs | CPT/HCPCS: 99213 ==

== ENCOUNTER → 2023-01-03 13:10 | Outpatient (BNVA) | payer MEDICAID, SELFPAY | PROVIDERS: PCP Nurse Practitioner Family; Visit Provider Nurse Practitioner Family | DX: E11.9 Type 2 diabetes mellitus without complications (principal); I10 Essential (primary) hypertension; E78.2 Mixed hyperlipidemia | CPT/HCPCS: 80053; 83036 ==

== ENCOUNTER → 2023-01-08 08:51 | Outpatient (BNVA) | payer MEDICAID, SELFPAY | PROVIDERS: PCP Nurse Practitioner Family; Visit Provider Student in an Organized Health Care Education/Training Program | DX: M25.812 Other specified joint disorders, left shoulder (principal); M19.012 Primary osteoarthritis, left shoulder; S46.212A Strain of muscle, fascia and tendon of other parts of biceps, left arm, initial encounter; X58.XXXA Exposure to other specified factors, initial encounter | CPT/HCPCS: 20610; 99204; J3301 ==

== ENCOUNTER → 2023-04-05 11:18 | Outpatient (BNVA) | payer MEDICAID, SELFPAY | PROVIDERS: PCP Nurse Practitioner Family; Visit Provider Nurse Practitioner Family | DX: E11.9 Type 2 diabetes mellitus without complications (principal) | CPT/HCPCS: 83036 ==

== ENCOUNTER → 2023-04-18 13:38 | Outpatient (BNVA) | payer MEDICAID, SELFPAY | PROVIDERS: PCP Nurse Practitioner Family; Visit Provider Student in an Organized Health Care Education/Training Program | DX: M25.812 Other specified joint disorders, left shoulder (principal); S46.212A Strain of muscle, fascia and tendon of other parts of biceps, left arm, initial encounter; M19.012 Primary osteoarthritis, left shoulder; X58.XXXA Exposure to other specified factors, initial encounter | CPT/HCPCS: 99214 ==

== ENCOUNTER → 2023-05-16 09:56 | Outpatient (BNVA) | payer MEDICAID, SELFPAY | PROVIDERS: PCP Nurse Practitioner Family; Visit Provider Family Medicine | DX: Z01.818 Encounter for other preprocedural examination (principal) | CPT/HCPCS: 80053; 81000; 85025 ==

== ENCOUNTER → 2023-05-21 13:51 | Outpatient (BNVA) | payer MEDICAID, SELFPAY | PROVIDERS: PCP Nurse Practitioner Family; Visit Provider Student in an Organized Health Care Education/Training Program | DX: M25.812 Other specified joint disorders, left shoulder (principal); S46.212A Strain of muscle, fascia and tendon of other parts of biceps, left arm, initial encounter; M19.012 Primary osteoarthritis, left shoulder; X58.XXXA Exposure to other specified factors, initial encounter | CPT/HCPCS: 99214 ==

== ENCOUNTER 2023-06-05 12:27 | Day surgery (SDC) | payer MEDICAID, SELFPAY ==
[2023-06-05] VITALS (12 sets, daily range): BP systolic 104–143; BP diastolic 63–93; PULSE 64–78; RESP 16–18; TEMP 36.1–36.8; O2SAT 90–95; BMI 41.5
--- NOTE | 2023-06-05 13:18 | W.PM.OPSUD ---
Surgery/Procedure H&P Update DATE OF PROCEDURE: June 05, 2023 DATE H&P PERFORMED: 05/21/23 H&P UPDATE INFORMATION: I have reviewed H&P completed within last 30 days, I have examined patient prior to procedure and No changes to prior documentation PREOP DIAGNOSIS: Left shoulder AC joint arthritis, subacromial impingement, biceps tendon te PRIMARY INDICATION FOR PROCEDURE: Left shoulder AC joint arthritis, subacromial impingement, biceps tendon tear PLANNED PROCEDURE: Operation Date: 06/05/23 11:55 Proposed Procedures p AC Joint Resection Arthroscopic AC Joint Resection(Left) - DO marjan Matson Subacromial Decompression(Left) - DO marjan Matson Bicep Tenotomy VS. Tenodesis(Left) - Alonso Renteria DO
[2023-06-05 13:20] LABS: Glucose Point of Care 182 mg/dL (70-110)
[2023-06-05] MEDS: acetaminophen 1,000 MG/100 ML PIGGYBACK 400 MG IV (13:27)
[2023-06-05] MEDS: ketorolac 30 mg/mL INJ IVP (13:27)
[2023-06-05] MEDS: scopolamine 1.5 Patch 1 PATCH TRANSDERMA (13:27)
[2023-06-05] MEDS: sodium chloride 0.9% 1,000 ML 30 ML IV (13:28)
[2023-06-05 13:54] LABS: Anion Gap 13.7 (5-19); Blood Urea Nitrogen 10 mg/dL (6-20); Calcium 8.8 mg/dL (8.5-10.5); Carbon Dioxide 32 mmol/L (22-29); Chloride 96 mmol/L (98-107); Glomerular Filtration Rate 138.9 mL/min (90-130); Glucose 187 mg/dL (65-115); Osmolality Calculated 290 mOsm/kg (285-295); Potassium 3.7 mmol/L (3.5-5.1); Sodium 138 mmol/L (136-145)
[2023-06-05] MEDS: ceFAZolin 2,000 MG in sodium chloride 0.9% (plus) 50 ML 100 MG IV (13:59)
--- NOTE | 2023-06-05 14:16 | P.ANESASSM_ITS ---
Pre-Anesthetic Assessment Height/Weight: Height 1.8 m Weight 135 kg Temp Pulse Resp BP Pulse Ox O2 Del Method 98.3 F 74 18 143/83 95 Room Air 06/05/23 12:44 06/05/23 13:44 06/05/23 13:44 06/05/23 13:44 06/05/23 13:44 06/05/23 13:44 Preop Diagnosis: Left shoulder AC joint arthritis, subacromial impingement, biceps tendon te Operation Date: 06/05/23 11:55 Proposed Procedures p AC Joint Resection Arthroscopic AC Joint Resection(Left) - Alonso [place], DO s Subacromial Decompression(Left) - Alonso [place] DO s Bicep Tenotomy VS. Tenodesis(Left) - Alonso Renteria DO Familial anesthetic complications: none Was Beta Toro taken within 24 hours: Yes Was Clonidine taken within 24 hours: N/A Last intake: Intake Last Liquid Date 06/04/23 Last Liquid Time 23:40 Last Solid Date 06/04/23 Last Solid Time 19:30 Social Tobacco and No alcohol Exam alert, oriented x 3 and regular rate & rhythm Airway Submandibular: within normal limits Cervical ROM: within normal limits Mallampati: Class II Dentition: false Pulmonary Chronic Obstructive Pulmonary Disease and Sleep Apnea Home O2 PRN CV/HEM Coronary Artery Disease and Hypertension GI Gastroesophageal Reflux Disease Metabolic Diabetes Mellitus, Hyperlipidemia and Morbid Obesity Musc/skel Lower Back Pain and Osteoarthritis/DJD Neuropsych Anxiety and Depression Anesthetic Plan ASA status: 3 Anesthesia: General and Regional (specify below) (Left interscalene) Medications/Allergies Home Medications Medication Instructions Recorded Confirmed Last Taken Type nitroglycerin 0.4 mg sublingual 0.4 mg sublingual Q5M PRN chest 10/27/19 06/04/23 04/03/23 Rx tablet pain 30 days #30 tabs Diabetic shoes #1 ea 08/30/20 05/21/23 Unknown Rx diabetic shoes with 3 molded #1 ea 08/22/21 05/21/23 Unknown Rx inserts hydrocodone 10 mg-acetaminophen 1 tab PO .COMPLEX PRN pain, 11/02/21 06/04/23 06/03/23 Rx 325 mg tablet moderate 1 month #120 tabs nystatin 100,000 unit/gram topical 1 applic topical TID PRN Rash 11/20/21 06/04/23 Unknown History ointment fluticasone propionate 50 See Rx Instructions .Route 03/21/22 06/04/23 06/03/23 Rx mcg/actuation nasal .COMPLEX #16 grams spray,suspension dicyclomine 10 mg capsule 10 mg PO DAILY #90 caps 07/02/22 06/04/23 06/03/23 Rx cetirizine 10 mg tablet 10 mg PO DAILY PRN allergy symptoms 07/16/22 06/04/23 05/29/23 History ibuprofen 200 mg capsule 400 mg PO Q8H PRN Pain 07/16/22 06/04/23 05/28/23 History isosorbide mononitrate 60 mg 60 mg PO DAILY #90 tabs 07/16/22 06/04/23 06/03/23 Rx tablet,extended release 24 hr methenamine hippurate 1 gram tablet 1 g PO BID PRN Pain 07/16/22 06/04/23 Unknown History rosuvastatin 20 mg tablet 20 mg PO DAILY #90 tabs 08/03/22 06/04/23 06/03/23 Rx hydrochlorothiazide 25 mg tablet 25 mg PO DAILY #90 tabs 08/15/22 06/04/23 06/03/23 Rx alfuzosin 10 mg tablet,extended See Rx Instructions .Route 08/30/22 06/04/23 06/03/23 Rx release 24 hr .COMPLEX #90 tabs finasteride 5 mg tablet See Rx Instructions .Route 09/05/22 06/04/23 06/03/23 Rx .COMPLEX #90 tabs blood-glucose meter,continuous #1 ea 10/03/22 05/21/23 Unknown Rx (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) blood-glucose sensor (Dexcom G6 #3 ea 10/03/22 05/21/23 Unknown Rx Sensor device) albuterol sulfate 90 mcg/actuation See Rx Instructions .Route 11/12/22 06/04/23 06/04/23 Rx aerosol inhaler (ProAir HFA) .COMPLEX #8.5 grams metformin 1,000 mg tablet See Rx Instructions .Route 12/24/22 06/04/23 06/03/23 Rx .COMPLEX #180 tabs Diabetic shoes #1 ea 01/01/23 05/21/23 Unknown Rx furosemide 20 mg tablet 20 mg PO QAM #90 tabs 01/03/23 06/04/2324 Rx potassium chloride 10 mEq See Rx Instructions .Route 01/03/23 06/04/23 06/03/23 Rx tablet,extended release .COMPLEX #90 tabs atenolol 50 mg tablet See Rx Instructions .Route 01/14/23 06/04/23 06/03/23 Rx .COMPLEX #30 tabs omeprazole 40 mg capsule,delayed See Rx Instructions .Route 01/14/23 06/04/23 06/03/23 Rx release .COMPLEX #30 caps tiagabine 4 mg tablet 4 mg PO TID pain 30 days #90 tabs 03/08/23 06/04/23 06/03/23 Rx glipizide 10 mg tablet See Rx Instructions .Route 04/03/23 06/04/23 06/03/23 Rx .COMPLEX #30 tabs tiotropium 2.5 mcg-olodaterol 2.5 See Rx Instructions .Route 04/03/23 06/04/23 06/05/23 Rx mcg/actuation mist for inhalation .COMPLEX #4 grams (Stiolto Respimat) liraglutide 0.6 mg/0.1 mL (18 mg/3 See Rx Instructions SUBCUT 04/08/23 06/04/23 05/28/23 Rx mL) subcutaneous pen injector .COMPLEX #6 mL (Victoza 2-Reid) pen needle, diabetic 32 gauge x #100 ea 04/09/23 05/21/23 Unknown Rx 5/32 (Comfort EZ Pen [place]) ondansetron 8 mg disintegrating 8 mg PO Q8H PRN nausea and 04/23/23 06/04/23 05/08/23 Rx tablet vomiting #30 tabs valsartan 80 mg tablet 80 mg PO DAILY #90 tabs 04/23/23 06/04/23 06/03/23 Rx duloxetine 60 mg capsule,delayed See Rx Instructions .Route 05/08/23 06/04/23 06/03/23 Rx release .COMPLEX #60 caps hydrocodone 5 mg-acetaminophen 325 1 tab PO Q6H PRN pain 5 days #20 06/05/23 Unknown Rx mg tablet tabs ondansetron 4 mg disintegrating 4 mg PO Q8H PRN nausea and 06/05/23 Unknown Rx tablet vomiting 3 days #9 tabs Allergies Allergy/AdvReac Type Severity Reaction Status Date / Time No Known Allergies Allergy Verified 06/04/23 13:08 Current Medications Generic Name Dose Route Start Last Admin Trade Name Freq PRN Reason Stop Dose Admin Sodium Chloride 1,000 mls @ 30 mls/hr 06/05/23 12:45 06/05/23 13:28 Sodium Chloride 0.9% IV 06/06/23 12:44 30 mls/hr .Q24H SOCRATES Administration PFSH Anesthesia Medical History Nicotine dependence, cigarettes, uncomplicated Restless leg syndrome Smoker unmotivated to quit Psychiatric care Generalized anxiety disorder Recurrent UTI Atherosclerotic cardiovascular disease Atypical chest pain Mixed hyperlipidemia Depression Hypertension History of [place] (myocardial infarction) COPD (chronic obstructive pulmonary disease) Type 2 diabetes mellitus Encounter for long-term opiate analgesic use Smoker Major depressive disorder, recurrent, moderate Neurogenic bladder Urinary retention Chronic low back pain Opioid contract exists Facet arthritis of lumbosacral region Surgical History H/O angioplasty Family History Father , at age 50, throat cancer Cancer Mother Hypertension Diabetes Social History Smoking and tobacco/nicotine status: current every day tobacco/nicotine user cigarettes Packs smoked per day: 1 Years cigarettes smoked: 44 Quit status (tobacco/nicotine): has tried quititng Number of times tried to quit tobacco: 4 Second hand smoke exposure: Yes Alcohol intake: current Alcohol intake frequency: few times a month Alcohol type: beer and hard liquor Substance/Drug Use: never Adopted: No Lives independently: Yes Household members: spouse Marital status: Current occupational status: disabled Do you think of yourself as: Straight/Heterosexual Current gender identity: Male Data Anesthesia 06/05/23 13:15 BMP 06/05/23 13:15 Sodium 138 Potassium 3.7 Chloride 96 L Carbon Dioxide 32 H BUN 10 Creatinine 0.6 L Glucose 187 H Calcium 8.8 Cardiac Studies: 2 Sestamibi Stress Test (Cardiology) 03/03 Anesthesia Procedures Nerve Block Nerve Block 1: Main Anesthesia: general anesthesia Time Out Performed: Yes Consent: requested by attending/covering physician, from patient, risks and benefits reviewed and patient agrees to proceed Nerve block location: interscalene (left) Anesthesia monitors applied: pulse oximetry, EKG, BP cuff and oxygen Nerve block position: semi sitting Anesthetic Used: ropivicaine 0.5% Amount of anesthesia used (mL): 30 Ultrasound used to: recognize landmarks and visualize and ID brachial plexus Nerve Stimulator Used?: No Interscalene/Femoral BLK: 2 stimuplex 22 g needle used for position and inplane approach Injection: neg aspiration of heme Patient Tolerated Procedure: well Complications: none
[2023-06-05] MEDS: EPINEPHrine 1 mg/mL INJ 2 MG XX (14:42)
--- NOTE | 2023-06-05 15:37 | W.PM.BPON ---
Date of Procedure: 06/05/2023 Surgeon: Alonso Renteria DO Pricing/Signage Team Member(s): None Procedure(s) performed: Left shoulder diagnostic and surgical arthroscopy with biceps tenotomy Left shoulder diagnostic and surgical arthroscopy with glenohumeral joint chondroplasty Left shoulder diagnostic and surgical arthroscopy with labral debridement Left shoulder diagnostic and surgical arthroscopy distal clavicle excision (AC joint resection) Left shoulder diagnostic and surgical arthroscopy subacromial decompression (bursectomy and acromioplasty) Findings of the procedure(s): Patient is found to have significant glenohumeral joint arthritis as well as labral tearing and biceps tendon tearing with significant AC joint arthritis patient underwent procedure as planned with no complications Estimated blood loss: 5 mL Specimen(s) removed: None Post-operative diagnosis: Left shoulder bicep tendon tear, glenohumeral joint chondromalacia, AC joint arthritis, subacromial impingement, labral tearing
--- NOTE | 2023-06-05 15:39 | P.OP_ITS ---
Operative Report Date of procedure: June 05, 2023 Surgeon: Alonso Renteria DO Procedure: Preoperative diagnosis: Left shoulder AC joint arthritis, subacromial impingement, biceps tendinitis/split tear post-op diagnosis:? Left?shoulder labral tear Left?shoulder biceps tendon tear Left shoulder glenohumeral joint arthritis Left?shoulder AC joint arthritis Left?shoulder subacromial bursitis/impingement Procedure done: Left?shoulder diagnostic and surgical arthroscopy biceps tenotomy Left?shoulder diagnostic and surgical arthroscopy labral debridement Left shoulder diagnostic and surgical arthroscopy glenohumeral joint chondroplasty Left?shoulder diagnostic and surgical arthroscopy acromioclavicular joint resection Left?shoulder diagnostic and surgical arthroscopy subacromial decompression (acromioplasty and bursectomy) Surgeon: Alonso Renteria DO Estimated blood loss: [5 ]mL IV fluids: See anesthesia record Implants: none Complications: None Condition: stable Disposition: same day Brief History: Patient been seen and worked up in the outpatient setting for Left?shoulder pain.? Pt had an MRI which showed findings below.? Patient's failed conservative treatment and has weakness.? We talked about treatment options far as nonoperative and operative intervention..? We talked about risk benefits complication alternatives surgical nonsurgical treatment options.? Understanding risk of surgery pt agrees to proceed with surgical intervention.? All questions have been answered at this time.? Patient elects proceed with surgery and consent obtained in office. MR/MR shoulder LT wo con* [id number] IMPRESSION: 1. Quality of this examination is limited by motion artifact. 2. Moderate AC joint arthritis. 3. Suspect partially subluxed biceps tendon with split tear. 4. Mild tendinopathy distal supraspinatus tendon. No rotator cuff tendon tear identified. 5. Moderate glenohumeral joint arthritis. Joint space narrowing with loss of the cartilage and subchondral cyst in the glenoid. Procedure: Patient seen evaluated in the preoperative holding area.? Consent reviewed and signed with patient.? Once again reviewed patient's MRI results as well as? planned surgical intervention.? Correct extremity marked.? Patient seen evaluated by anesthesia department received regional anesthesia.? Once ready for surgery was taken back to the operative suite.? Patient then subsequently underwent anesthesia per the anesthesia department was transported onto the OR table.? Patient was then placed into a lateral decubitus position with a beanbag and was appropriately secured to the bed.? All bony prominences well-padded.? Patient then had the Left upper extremity was then prepped and draped in standard orthopedic fashion.? Patient received appropriate preoperative antibiotics.? Final timeout performed. The Left upper extremity was then held in hanging from traction utilizing sterile technique.? Next started with standard diagnostic and surgical arthroscopy with posterior portal position introduced arthroscope into the glenohumeral joint.? Visualized the glenohumeral joint I then introduced a spinal needle within the rotator cuff interval to confirm appropriate anterior portal placement.? Once this was confirmed I then made my small incision and then introduced my arthroscopic shaver into the glenohumeral joint.? After thorough debridement was clearly evident patient had a significant erythema as well as positive for biceps tendon split tear. Decision at this time was made to perform a biceps tenotomy.? Introduced a thermal wand and a biceps tenotomy was performed to completion With appropriate release.? Next I evaluated the subscapularis tendon which was intact and no evidence of tear. ?Next there was significant labral tearing at biceps anchor and circumferential.? ? I then subsequently utilized a a arthroscopic shaver and thermal wand to perform a labral debridement.? This point time I then visualized the glenohumeral joint.? TGlenohumeral joint was found to have grade 3-4 chondromalacia throughout the utilized thermal wand and arthroscopic shaver to perform a chondroplasty to stable articular tissue. Infrapatellar pouch was free of loose bodies from viewing the posterior portal.? Next a visualized the rotator cuff superiorly was found to be intact but there negative escape bubble sign. ?This completed my work within the glenohumeral joint all fluid was suctioned free of the joint.? ?Next I reintroduced the arthroscope posteriorly.? And went to the subacromial space.? I established my lateral working portal. Thermal wand was then introduced laterally and then I subsequently performed extensive bursectomy of the subacromial space.? Patient had a large anterior bone spur.? At this point time I proceeded with my AC joint resection thermal wand was used and track to the anterior edge of the acromion and then tracked all the way to the AC joint.? Once identified the AC joint this was very arthritic in nature.? Thermal wand was placed anteriorly to establish appropriate plane for AC joint resection.? Once appropriate margins and anterior inferior and anterior capsule was released I then introduced arthroscopic shaver and a bur and performed AC joint resection of both the acromion to cope plane at the AC joint and a distal clavicle resection was then performed totaling 1 cm in size and was confirmed.? This completed my AC joint resection and I then introduced the arthroscopic shaver laterally while continuing to view posteriorly.? I then performed an acromioplasty to complete my subacromial decompression. Once again reviewed the rotator cuff in the subacromial space and there is no evidence of rotator cuff tear this is intact. ?I then switched the arthroscope to the lateral portal to confirm this tension- free repair.? I took the?shoulder through range of motion and the rotator cuff repair was stable and moved as a unit. ?Next I then introduced the arthroscopic shaver posteriorly to complete my subacromial decompression appropriate completing all the way up to the lateral edge of the acromion.? This completed the surgery.? All fluid was suctioned from the?shoulder.? All instruments were removed.? The lateral incision was then closed with nylon stitches.? As well as the portal sites closed with portal nylon stitches.? Xeroform 4 x 4's ABD and tape was then applied to the Left?shoulder and was placed into a?sling.? Patient was then awakened from anesthesia and then taken back to PACU in stable condition.? Patient tolerated procedure without any issues. Disposition: Patient taken back in stable condition recovering well.? Dressings on in place clean dry and intact.? Will be nonweightbearing to the Left upper extremity.? maintain sling. Patient to follow-up with me in the office in 2 weeks.? Patient will receive appropriate discharge instruction as well as pain medication postoperatively.? All questions answered.? We will contact the office for any questions or concerns.
--- NOTE | 2023-06-05 16:31 | ANE.PACU2 ---
Inpatient post-anesthesia follow up: Airway intact: Yes Vital signs: Temperature 97 F Pulse Rate 66 Respiratory Rate 16 Blood Pressure 126/73 Pulse Oximetry 90 Oxygen Delivery Me thod Simple Mask Oxygen Flow Rate 6 Fraction of Inspir ed Oxygen Hydration adequate: Yes Nausea and vomiting: No Pain level: 1 Mental status: Baseline
[2023-06-05 17:27] LABS: Glucose Point of Care 134 mg/dL (70-110)
[2023-06-05] MEDS: HYDROcodone-acetaminophen 5-325 mg Tablet 2 TAB PO (17:30)
== END 2023-06-05 17:50 | disposition home or self-care (01) ==
PROVIDERS: Anesthesiology; PCP Nurse Practitioner Family; Visit Provider Student in an Organized Health Care Education/Training Program
PROC: (CPT 29826; 2023-06-05 13:40)
PROC: (CPT 29805; 2023-06-05 13:40)
DX: M19.012 Primary osteoarthritis, left shoulder (principal); M25.812 Other specified joint disorders, left shoulder; M75.22 Bicipital tendinitis, left shoulder; J44.9 Chronic obstructive pulmonary disease, unspecified; G47.30 Sleep apnea, unspecified; Z99.81 Dependence on supplemental oxygen; I25.10 Atherosclerotic heart disease of native coronary artery without angina pectoris; I10 Essential (primary) hypertension; K21.9 Gastro-esophageal reflux disease without esophagitis; E11.9 Type 2 diabetes mellitus without complications; E66.01 Morbid (severe) obesity due to excess calories; Z68.41 Body mass index [BMI] 40.0-44.9, adult; E78.2 Mixed hyperlipidemia; F17.210 Nicotine dependence, cigarettes, uncomplicated
CPT/HCPCS: 29823; 29824; 29828; 36415; 36416; 80048; 82962; J0131; J0171; J0690; J1170; J1885; J2704; J2710; J2795; J3010; J3490; J7030

== ENCOUNTER → 2023-06-20 10:35 | Outpatient (BNVA) | payer MEDICAID, SELFPAY | PROVIDERS: PCP Nurse Practitioner Family; Visit Provider Physician Assistant | DX: Z98.890 Other specified postprocedural states (principal) | CPT/HCPCS: 99024 ==

== ENCOUNTER → 2023-07-05 11:22 | Outpatient (BNVA) | payer MEDICAID, SELFPAY | PROVIDERS: PCP Nurse Practitioner Family; Visit Provider Nurse Practitioner Family | DX: E11.65 Type 2 diabetes mellitus with hyperglycemia (principal) | CPT/HCPCS: 83036 ==

== ENCOUNTER → 2023-09-05 10:32 | Outpatient (BNVA) | payer MEDICAID, SELFPAY | PROVIDERS: PCP Nurse Practitioner Family; Visit Provider Physician Assistant | DX: Z98.890 Other specified postprocedural states (principal) | CPT/HCPCS: 99213 ==

== ENCOUNTER → 2023-10-03 10:59 | Outpatient (BNVA) | payer MEDICAID, SELFPAY | PROVIDERS: PCP Nurse Practitioner Family; Visit Provider Nurse Practitioner Family | DX: E11.65 Type 2 diabetes mellitus with hyperglycemia (principal) | CPT/HCPCS: 80053; 80061; 82043; 83036 ==

== ENCOUNTER → 2023-10-04 10:00 | Outpatient (BNVA) | payer MEDICAID, SELFPAY ==
[2023-10-07 11:31] VITALS: BP 116/62
[2023-10-07 11:33] VITALS: BMI 41.6
== END ==
PROVIDERS: PCP Nurse Practitioner Family; Visit Provider Nurse Practitioner Family
DX: L98.9 Disorder of the skin and subcutaneous tissue, unspecified (principal)
CPT/HCPCS: 88305

== ENCOUNTER → 2023-10-31 13:22 | Outpatient (BNVA) | payer MEDICAID, SELFPAY ==
[2023-10-07 11:31] VITALS: BP 116/62
[2023-10-07 11:33] VITALS: BMI 41.6
== END ==
PROVIDERS: PCP Nurse Practitioner Family; Visit Provider Internal Medicine Cardiovascular Disease
DX: I10 Essential (primary) hypertension (principal); I83.893 Varicose veins of bilateral lower extremities with other complications; F17.200 Nicotine dependence, unspecified, uncomplicated; E78.2 Mixed hyperlipidemia; I25.10 Atherosclerotic heart disease of native coronary artery without angina pectoris; F41.1 Generalized anxiety disorder; E11.65 Type 2 diabetes mellitus with hyperglycemia; F17.210 Nicotine dependence, cigarettes, uncomplicated; Z79.84 Long term (current) use of oral hypoglycemic drugs
CPT/HCPCS: 99214

== ENCOUNTER 2023-11-27 12:28 | Outpatient (CLI) | payer MEDICAID, SELFPAY ==
[2023-10-07 11:31] VITALS: BP 116/62
[2023-10-07 11:33] VITALS: BMI 41.6
--- NOTE | 2023-11-27 12:45 | USCV_ITS ---
Scott New Age: 58 Gender: M : 1965 Exam Date: 11/27/2023 12:36 Ordering Phys: Hair Harrell MD ([email or web address]) Technologist: Exam Location: [facility] [place] Indication: HISTORY: PROCEDURES: Bilateral duplex Venous Insufficiency study of the Deep and Superficial systems was carried out according to normal protocol with the patient in supine positon for deep system and dependent position for the superficial system. FINDINGS: All deep veins demonstrated compressibility without evidence of intraluminal thrombus or increased echogenicity. Spectral analysis of Doppler signals demonstrates normal response to compression maneuvers indicating patency without obstruction. Reflux determinations were made with the patient in the dependent position, the weight being on the contralateral leg. No notable reflux was seen at this time. CONCLUSIONS 1. No significant venous reflux bilaterally 2. Normal venous dimensions bilaterally 3. No evidence of any deep vein or superficial vein thrombosis Dr Valeria Bray MD [facility] (Electronically Signed) Final Date: 30 November 2023 11:41 S
== END 2023-11-27 12:29 | disposition home or self-care (01) ==
LOC: RAD 12:28
PROVIDERS: PCP Nurse Practitioner Family; Visit Provider Internal Medicine Cardiovascular Disease
DX: I83.893 Varicose veins of bilateral lower extremities with other complications (principal)
CPT/HCPCS: 93970

== ENCOUNTER → 2023-12-06 13:57 | Outpatient (BNVA) | payer MEDICAID, SELFPAY ==
[2023-10-07 11:31] VITALS: BP 116/62
[2023-10-07 11:33] VITALS: BMI 41.6
== END ==
PROVIDERS: PCP Nurse Practitioner Family; Visit Provider Nurse Practitioner Family
DX: R31.9 Hematuria, unspecified (principal)
CPT/HCPCS: 81000

== ENCOUNTER → 2023-12-12 14:09 | Outpatient (BNVA) | payer MEDICAID, SELFPAY ==
[2023-10-07 11:31] VITALS: BP 116/62
[2023-10-07 11:33] VITALS: BMI 41.6
== END ==
PROVIDERS: PCP Nurse Practitioner Family; Visit Provider Family Medicine
DX: I95.9 Hypotension, unspecified (principal); R00.0 Tachycardia, unspecified; R53.83 Other fatigue; E83.42 Hypomagnesemia
CPT/HCPCS: 80053; 82533; 83735; 84439; 84443; 85025; 86140

== ENCOUNTER → 2023-12-13 18:09 | Outpatient (BNVA) | payer MEDICAID, SELFPAY ==
[2023-10-07 11:31] VITALS: BP 116/62
[2023-10-07 11:33] VITALS: BMI 41.6
== END ==
PROVIDERS: PCP Family Medicine; Visit Provider Family Medicine
DX: E87.6 Hypokalemia (principal)
CPT/HCPCS: 84132

== ENCOUNTER → 2024-04-01 10:20 | Outpatient (BNVA) | payer MEDICAID, SELFPAY ==
[2023-10-07 11:31] VITALS: BP 116/62
[2023-10-07 11:33] VITALS: BMI 41.6
== END ==
PROVIDERS: PCP Family Medicine; Visit Provider Nurse Practitioner Family
DX: E11.65 Type 2 diabetes mellitus with hyperglycemia (principal)
CPT/HCPCS: 83036

== ENCOUNTER → 2024-04-14 13:52 | Outpatient (BNVA) | payer MEDICAID, SELFPAY ==
[2023-10-07 11:31] VITALS: BP 116/62
[2023-10-07 11:33] VITALS: BMI 41.6
== END ==
PROVIDERS: PCP Family Medicine; Visit Provider Internal Medicine Cardiovascular Disease
DX: R07.9 Chest pain, unspecified (principal)
CPT/HCPCS: 93005

== ENCOUNTER → 2024-07-06 11:22 | Outpatient (BNVA) | payer MEDICAID, SELFPAY ==
[2023-10-07 11:31] VITALS: BP 116/62
[2023-10-07 11:33] VITALS: BMI 41.6
== END ==
PROVIDERS: PCP Family Medicine; Visit Provider Nurse Practitioner Family
DX: I10 Essential (primary) hypertension (principal); E11.9 Type 2 diabetes mellitus without complications
CPT/HCPCS: 80053; 80061; 82043; 83036

== ENCOUNTER → 2024-08-05 12:47 | Outpatient (BNVA) | payer MEDICAID, SELFPAY ==
[2024-07-09 15:51] VITALS: BP 126/78; BMI 41.2
== END ==
PROVIDERS: PCP Nurse Practitioner Family; Visit Provider Nurse Practitioner Family
DX: L82.1 Other seborrheic keratosis (principal); L85.8 Other specified epidermal thickening; D18.01 Hemangioma of skin and subcutaneous tissue; L57.8 Other skin changes due to chronic exposure to nonionizing radiation; L81.4 Other melanin hyperpigmentation; L57.0 Actinic keratosis
CPT/HCPCS: 17000; 99203

== ENCOUNTER → 2024-10-09 09:00 | Outpatient (BNVA) | payer MEDICAID, SELFPAY ==
[2024-07-09 15:51] VITALS: BP 126/78; BMI 41.2
== END ==
PROVIDERS: PCP Nurse Practitioner Family; Visit Provider Nurse Practitioner Family
DX: E11.65 Type 2 diabetes mellitus with hyperglycemia (principal); E66.9 Obesity, unspecified
CPT/HCPCS: 83036

== ENCOUNTER → 2024-10-13 15:13 | Outpatient (BNVA) | payer MEDICAID, SELFPAY ==
[2024-07-09 15:51] VITALS: BP 126/78; BMI 41.2
== END ==
PROVIDERS: PCP Nurse Practitioner Family; Visit Provider Internal Medicine Cardiovascular Disease
DX: I25.10 Atherosclerotic heart disease of native coronary artery without angina pectoris (principal); I48.91 Unspecified atrial fibrillation; I10 Essential (primary) hypertension; F17.210 Nicotine dependence, cigarettes, uncomplicated; I25.2 Old myocardial infarction
CPT/HCPCS: 99214

== ENCOUNTER → 2025-01-08 09:30 | Outpatient (BNVA) | payer MEDICAID, SELFPAY ==
[2024-07-09 15:51] VITALS: BP 126/78; BMI 41.2
== END ==
PROVIDERS: PCP Nurse Practitioner Family; Visit Provider Nurse Practitioner Family
DX: I10 Essential (primary) hypertension (principal); E11.65 Type 2 diabetes mellitus with hyperglycemia
CPT/HCPCS: 80053; 80061; 83036

== ENCOUNTER 2025-04-05 16:43 | Outpatient (CLI) | payer MEDICAID, SELFPAY ==
[2025-01-12 10:13] VITALS: BP 113/75; BMI 38.0
--- NOTE | 2025-04-05 17:00 | CT_ITS ---
WS: [id number] LDCT LUNG CANCER SCREENING TECHNIQUE: Noncontrast CT of the chest with coronal and sagittal reformatted images. CLINICAL INFORMATION: F17.200 - Nicotine dependence, unspecified, uncomplicated COMPARISON: 2020 DLP: 148.30 mGy.cm DIvol: Mean CTDIvol: 3.70 (mGy) All CT scans at [facility] use at least one of these dose optimization techniques: automated exposure control; mA and/or kV adjustment per patient size (includes targeted exams where dose is matched to clinical indication); or iterative reconstruction. FINDINGS: Subsegmental atelectasis in the lingula and lower lobes. No mediastinal or hilar lymphadenopathy. No axillary lymphadenopathy. No suspicious pulmonary parenchymal abnormalities. Hyperinflation. Chronic emphysematous change. Aortic calcification. Coronary calcification. Tiny esophageal hiatal hernia. Adrenal glands are normal. Chronic anterior wedging in the lower thoracic spine. Endplate Schmorl's nodes. CT/CT lung screening [id number] IMPRESSION: LUNG-RADS: 1-Negative FOLLOW UP: 12 Month: Continue annual screening with LDCT
== END 2025-04-05 16:44 | disposition home or self-care (01) ==
LOC: RAD 16:44
PROVIDERS: PCP Family Medicine; Visit Provider Family Medicine
DX: Z12.2 Encounter for screening for malignant neoplasm of respiratory organs (principal); F17.210 Nicotine dependence, cigarettes, uncomplicated; J98.11 Atelectasis; J43.9 Emphysema, unspecified; I25.10 Atherosclerotic heart disease of native coronary artery without angina pectoris; M48.54XA Collapsed vertebra, not elsewhere classified, thoracic region, initial encounter for fracture; X58.XXXA Exposure to other specified factors, initial encounter; M51.44 Schmorl's nodes, thoracic region
CPT/HCPCS: 71271

== ENCOUNTER → 2025-04-08 10:17 | Outpatient (BNVA) | payer MEDICAID, SELFPAY ==
[2025-01-12 10:13] VITALS: BP 113/75; BMI 38.0
== END ==
PROVIDERS: PCP Family Medicine; Visit Provider Student in an Organized Health Care Education/Training Program
DX: R12 Heartburn (principal); Z12.11 Encounter for screening for malignant neoplasm of colon; K21.9 Gastro-esophageal reflux disease without esophagitis
CPT/HCPCS: 99204

== ENCOUNTER → 2025-04-12 11:37 | Outpatient (BNVA) | payer MEDICAID, SELFPAY ==
[2025-01-12 10:13] VITALS: BP 113/75; BMI 38.0
== END ==
PROVIDERS: PCP Family Medicine; Visit Provider Nurse Practitioner Family
DX: Z12.5 Encounter for screening for malignant neoplasm of prostate (principal); I10 Essential (primary) hypertension; E11.65 Type 2 diabetes mellitus with hyperglycemia; I48.91 Unspecified atrial fibrillation; E55.9 Vitamin D deficiency, unspecified; R79.89 Other specified abnormal findings of blood chemistry
CPT/HCPCS: 80053; 80061; 82043; 82306; 82607; 83036; 84443; 85025; G0103

== ENCOUNTER 2025-04-23 08:37 | Outpatient (CLI) | payer MEDICAID, SELFPAY ==
[2025-04-14 16:14] VITALS: BP 140/80
[2025-04-14 16:16] VITALS: BMI 39.9
--- NOTE | 2025-04-23 | ECG_ITS ---
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 Interpretive Statements LEXISCAN SESTAMIBI STRESS TEST Procedure: At the baseline, the blood pressure was 183/106mmHg with a heart rate of 77 bpm. The electrocardiogram showed normal sinus rhythm, normal axis with normal ST and T's. The Lexiscan was infused over a period of 20 seconds. A total of 0.4 mg of Lexiscan was infused. The stress phase was continued for a total of 5 minutes. Heart rate was at the end of stress phase was 87 bpm and a blood pressure of 174/101 mmHg. The EKG at the peak infusion revealed normal sinus rhythm with no significant ST-T wave changes. Sestamibi was injected 20 seconds after the Lexiscan infusion. Blood pressure at the end of recovery phase was 173/101 mmHg with a heart rate of 91 bpm. Conclusion: 1. Normal EKG response to Lexiscan infusion 2. No Lexiscan induced chest pain or cardiac arrhythmia. 3. Normal blood pressure and heart rate response. 4. Sestamibi/sestamibi perfusion scan pending; see separate report. Electronically Signed On 05-16-2025 15:28:26 [employer] PROFESSOR by Geovanny Kumar M.D. [email or web address]
[2025-04-23 08:47] VITALS: BMI 37.7
--- NOTE | 2025-04-23 08:50 | NMCV_ITS ---
NM antonio perf SPECT r/s* [id number] Scott New Age: 59 Gender: M : 1965 Exam Date: 04/23/2025 09:26 Ordering Phys: Geovanny Kumar M.D ([email or web address]) Technologist: ADIN Huff Exam Location: [facility] Indications: cp STRESS TEST [facility] IMAGE PROTOCOL Rest/Stress 1 Lexiscan Day Radiopharmaceutical Dose (mCi) Administration Site Administered by Rest: Tc-99m 10.6 IV ADIN Huff Sestamibi Stress:Tc-99m 32.7 IV ADIN Henry Sestamibi Rest: 23-Apr-2025 60 Discovery 630 Stress: 23-Apr-2025 30 Discovery 630 0.4mg Lexiscan. Supine position only as patient was unable to lay prone. SPECT RESULTS Technical Quality: Good Raw Data Analysis: Normal Image Corrections: No attenuation or motion correction applied Summed Stress Score: 4 Summed Rest Score: 3 Summed Difference Score: 1 PERFUSION FINDINGS There is small sized area of mostly fixed perfusion defect seen in apical, apical inferior and apical lateral hi. This is consistent with small area of prior infarct with some wally-infarct ischemia in this territory. FUNCTIONAL RESULTS (calculated via Gated SPECT) Stress Image LV EF (%): 48 Stress EDV (mL):140 TID: 1.24 Stress ESV (mL):73 FUNCTIONAL FINDINGS: LV systolic function is mildly reduced with EF of 48% IMPRESSIONS 1. 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 2. LV systolic function is mildly reduced with EF of 48%. TID ratio is elevated and is 1.24 Geovanny Kumar MD (Electronically Signed) Final Date: 24 April 2025 12:29 S
[2025-04-23 10:18] VITALS: BP 157/99; PULSE 83
== END 2025-04-23 08:38 | disposition home or self-care (01) ==
LOC: CDL 08:39
PROVIDERS: PCP Family Medicine; Visit Provider Internal Medicine
DX: R06.02 Shortness of breath (principal); R93.1 Abnormal findings on diagnostic imaging of heart and coronary circulation
CPT/HCPCS: 36415; 78452; 93017; 96374; A9500; J2785

== ENCOUNTER 2025-04-27 07:00 | Outpatient (CLI) | payer MEDICAID, SELFPAY ==
[2025-04-14 16:14] VITALS: BP 140/80
[2025-04-14 16:16] VITALS: BMI 39.9
--- NOTE | 2025-04-27 10:00 | USCV_ITS ---
Scott New Age: 59 Gender: M : 1965 Exam Date: 04/27/2025 07:35 Ordering Phys: Geovanny Kumar M.D ([email or web address]) Technologist: JUAN DAVID Exam Location: [facility] [place] Indication: SoB BP: 140 / 80 HR: 78 Rhythm: Sinus Technical Quality: Adequate MEASUREMENTS (Male / Female) Normal Values 2D ECHO LV Diastolic Diameter PLAX 6.1 cm 4.2 - 5.9 / 3.9 - 5.3 cm IVS Diastolic Thickness 0.8 cm 0.6 - 1.0 / 0.6 - 0.9 cm IVS Systolic Thickness 1.0 cm LVPW Diastolic Thickness 1.0 cm 0.6 - 1.0 / 0.6 - 0.9 cm LVPW Systolic Thickness 1.1 cm LVOT Diameter 2.2 cm LV Ejection Fraction 2D Teich 25.9 % LV Ejection Fraction MOD 4C 55.9 % LV Ejection Fraction MOD 2C 65.1 % LV Ejection Fraction 2C AL 67.0 % LA Diameter 3.1 cm RA Systolic Volume 4C AL 23.2 ml RA Systolic Volume 4C MOD 22.0 ml LA Sys Volume AL 40.1 cm cubed LA Sys Volume Index AL 15.4 cm cubed/m squared Aorta at Sinotubular Diameter 2.6 cm M-MODE LA Ao Ratio MM 1.7 AV Cusp Separation MM 2.0 cm DOPPLER AV Peak Velocity 147.0 cm/s LVOT Peak Velocity 94.0 cm/s AV Area Cont Eq vti 2.9 cm squared AV Area Cont Eq pk 2.5 cm squared MV Peak Velocity 97.0 cm/s MV Area PHT 4.3 cm squared Mitral E to A Ratio 0.7 TR Peak Velocity 101.0 cm/s TR Peak Gradient 4.1 mmHg TV Peak E Velocity 75.0 cm/s PV Peak Velocity 127.0 cm/s FINDINGS Left Ventricle Normal left ventricular size and systolic function, EF of 60- 65%. No regional wall motion abnormalities. Grade 1 diastolic dysfunction Right Ventricle Normal in size and function Right Atrium Normal in size Left Atrium Normal in size IA Septum Grossly normal. Mitral Valve Structurally normal mitral valve. Mild mitral valve regurgitation. Aortic Valve Aortic valve is thickened. No aortic valve stenosis. Tricuspid Valve Insufficient TR jet to calculate RVSP Pulmonic Valve Not well visualized Pericardium Normal Aorta Normal in size IVC Not well visualized CONCLUSIONS LV systolic function is normal with EF of 60-65%. Grade 1 diastolic dysfunction. Mild mitral regurgitation Geovanny Kumar MD (Electronically Signed) Final Date: 15 May 2025 12:15 S
== END 2025-04-27 07:01 | disposition home or self-care (01) ==
LOC: RAD 07:01
PROVIDERS: PCP Family Medicine; Visit Provider Internal Medicine
DX: R06.02 Shortness of breath (principal); I34.0 Nonrheumatic mitral (valve) insufficiency; I50.89 Other heart failure
CPT/HCPCS: 93306